=== PATIENT | male | born 1940 | race Caucasian/White ===

== ENCOUNTER 2022-05-06 11:48 | Inpatient (IN) | payer MEDICARE, MEDICAID, SELFPAY ==
[2022-05-06] VITALS (20 sets, daily range): BP systolic 100–131; BP diastolic 56–68; PULSE 83–156; RESP 16–37; TEMP 36.6–36.8; O2SAT 90–97; BMI 32.1; BMI 33.0
--- NOTE | 2022-05-06 11:53 | DI.RAD.S_ITS ---
PROCEDURE: XR CHEST 2V INDICATIONS: shortness of breath TECHNIQUE: 2 views of the chest were acquired. COMPARISON: [facility], CHEST 2 VIEW, 07/04/2013, 15:47. [facility], CHEST 2 VIEW, 05/15/2013, 15:23. FINDINGS: Surgical changes and devices: None. Lungs and pleura: [id number] bilateral mid and lower lung disease. Mediastinum: Borderline enlarged heart. Tortuous aorta. Stable prominent mediastinum. Bones and chest wall: No suspicious bony abnormalities. Soft tissues appear unremarkable. IMPRESSION: Bilateral [id number] lung disease could be infection or inflammation. Consider future imaging surveillance to assess for resolution. Dictated by: Brant Tiwari M.D. on 05/06/2022 at 13:02 Approved by: Brant Tiwari M.D. on 05/06/2022 at 13:04
--- NOTE | 2022-05-06 12:48 | ED.SOB ---
HPI - SOB/Dyspnea General Chief Complaint: Shortness of Breath/Dyspnea Stated Complaint: sob Time Seen by Provider: 05/06/22 11:56 Source: patient and family Mode of arrival: EMS Limitations: no limitations History of Present Illness HPI Narrative: Patient is a a 81-year-old male history of COPD, CHF atrial fibrillation presenting today with increasing shortness of breath. The last 2 days he has not felt while he has had productive sputum he has been short of breath at rest he had some vomiting and some diarrhea as well but no abdominal pain. Generally not feeling great. He has been unable to take most of his medication last 2 days due to nausea and diarrhea. EMS arrived and found him hypoxic 86% on room air in slightly hypotensive in the 90s. Blood pressure his now stable after small amount of fluid. He received to bronchodilators by EMS as well. He is not on home oxygen. Related Data Home Medications Medication Instructions Recorded Confirmed albuterol sulfate 90 mcg/actuation 2 puff inhalation Q6H PRN 05/06/22 05/06/22 aerosol inhaler (Ventolin HFA) Shortness Of Breath apixaban 5 mg tablet (Eliquis) 5 mg PO BID 05/06/22 05/06/22 budesonide-formoterol HFA 160 2 puff inhalation Q12H 05/06/22 05/06/22 mcg-4.5 mcg/actuation aerosol inhaler (Symbicort) potassium chloride 10 mEq 20 meq PO DAILY PRN low potassium 05/06/22 05/06/22 tablet,extended release torsemide 20 mg tablet 40 mg PO DAILY 05/06/22 05/06/22 Previous Rx's Medication Instructions Recorded carvedilol 6.25 mg tablet (Coreg) 6.25 mg PO BID #180 tabs 12/21/16 Allergies Allergy/AdvReac Type Severity Reaction Status Date / Time codeine [CODEINE] AdvReac Unknown HEADACHE Verified 05/06/22 11:54 hydrocodone [HYDROCODONE] AdvReac Unknown HEADACHE Verified 05/06/22 11:54 Review of Systems Review of Systems Narrative: GENERAL: Body aches generalized weakness, see HPI HEENT: Denies sinus pain, ear pain, sore throat, difficulty swallowing, neck pain RESPIRATORY: See HPI CARDIOVASCULAR: Denies chest pain, palpitations, orthopnea, edema GASTROINTESTINAL: Denies nausea, vomiting, abdominal pain, diarrhea, constipation, melena. : Denies dysuria, frequency, incontinence, hematuria, urinary retention, flank pain. MUSCULOSKELETAL: Denies weakness, joint pain, or bony pain SKIN: No rash, no erythema, no pruritus NEUROLOGIC: Denies weakness, dizziness, headache, numbness, change in speech, confusion PSYCHIATRIC: No concerning psychosocial issues. 12 point review of systems is negative except for those stated above and HPI Patient History Medical History CHF (congestive heart failure) Chronic atrial fibrillation (07/13/15) Chronic obstructive pulmonary disease (07/13/15) Essential hypertension (07/13/15) Surgical History S/P hernia surgery S/P TURP Family History Mother No pertinent past medical history Father No pertinent past medical history Social History household members: spouse Smoking Status: Former smoker alcohol intake: never Smoking Status: Never smoker Substance Use Type: does not use Exam Initial Vital Signs Initial Vital Signs: Vital Signs Pulse Rate 104 H 05/06/22 11:53 Blood Pressure 130/66 05/06/22 11:53 Pulse Oximetry 91 05/06/22 11:53 GENERAL: Alert ill-appearing 81-year-old male HEENT: Head atraumatic,EOMI, pupils reactive, face symmetric,dry mucous membranes CARDIOVASCULAR: Regular rate and rhythm without murmurs, rubs or gallops. RESPIRATORY: Rales at base his minimal tachypnea minimal wheezing ABDOMEN: Soft, nontender. Normoactive bowel sounds all 4 quadrants. No guarding or rebound. EXTREMITIES: Normal range of motion, no clubbing . +1 edema. Neurovascularly intact NEUROLOGICAL: Alert and oriented x4. Moving all extremities SKIN: Warm, dry, no laceration, no petechiae, no rashes or lesions. Course Orders Ordered: ED Orders 05/06/22 11:53 XR chest 2V Stat EKG-12 Lead Stat Measure peak expiratory flow ONCE RT Consult Eval and Treat Now 05/06/22 12:20 Covid-19 + FLU A/B + RSV - PCR Stat 05/06/22 13:12 BNP [NT-proBNP (BNP-Adult 18+)] Stat Complete Blood Count AUTO DIFF Stat Comprehensive Metabolic Panel Stat Procalcitonin Stat Troponin & CK Cardiac Panel Stat 05/06/22 13:18 Blood Culture Stat Lactate (Lactic Acid) Stat 05/06/22 13:53 UA Complete [Urinalysis and Microscopic] Stat 05/07/22 05:00 Complete Blood Count AUTO DIFF DAILY Comprehensive Metabolic Panel DAILY Magnesium DAILY 05/08/22 05:00 Complete Blood Count AUTO DIFF DAILY Comprehensive Metabolic Panel DAILY Magnesium DAILY 05/09/22 05:00 Complete Blood Count AUTO DIFF DAILY Comprehensive Metabolic Panel DAILY Magnesium DAILY Acetaminophen (Acetaminophen 325 Mg Tablet) 650 mg PO Q6H PRN PRN Reason: Fever/Mild Pain (1-3) Last Admin: 05/06/22 17:29 Dose: 650 mg Documented By: MARINO Albuterol (Albuterol 2.5 Mg/3 Ml Neb (Adult)) 2.5 mg INH [id number] PRN PRN Reason: Shortness Of Breath Albuterol/Ipratropium (Albuterol/Ipratropium 3 Ml Ampul) 3 ml INH [id number] ANA Apixaban (Apixaban 5 Mg Tablet) 5 mg PO BID ANA Benzocaine (Benzocaine/Menthol 1 Milind Pkt) 1 each PO Q1HR PRN PRN Reason: Sore Throat Last Admin: 05/06/22 16:19 Dose: 1 each Documented By: MARINO Budesonide (Budesonide 0.5 Mg/2 Ml Neb) 0.5 mg INH RTBID ANA Ceftriaxone Sodium 1,000 mg/ (Sodium Chloride) 100 mls @ 200 mls/hr IV Q24H ANA Stop: 05/10/22 14:31 Azithromycin 500 mg/ Dextrose 250 mls @ 250 mls/hr IV Q24H ANA Stop: 05/08/22 14:31 Ondansetron HCl (Ondansetron 4 Mg/2 Ml Inj) 4 mg IV Q8HR PRN PRN Reason: Nausea And Vomiting Prednisone (Prednisone 20 Mg Tablet) 40 mg PO DAILY AAN Discontinued Medications Ceftriaxone Sodium 2,000 mg/ (Sodium Chloride) 100 mls @ 200 mls/hr IV NOW ONE Stop: 05/06/22 13:50 Last Infusion: 05/06/22 14:34 Dose: 0 mls/hr Documented By: Admin: 05/06/22 14:02 Dose: 200 mls/hr Documented By: GABBY Azithromycin 500 mg/ Dextrose 250 mls @ 250 mls/hr IV NOW ONE Stop: 05/06/22 13:50 Last Infusion: 05/06/22 16:33 Dose: 250 mls/hr Documented By: Admin: 05/06/22 14:38 Dose: 250 mls/hr Documented By: GABBY Sodium Chloride (Normal Saline 0.9%) 1,000 mls @ 1,000 mls/hr IV BOLUS ONE Stop: 05/06/22 15:15 Last Infusion: 05/06/22 16:33 Dose: 1,000 mls/hr Documented By: Admin: 05/06/22 14:25 Dose: 1,000 mls/hr Documented By: GABBY Vital Signs Vital signs: Vital Signs - 8 hr 05/06/22 11:56 05/06/22 11:53 05/06/22 11:53 Temperature 97.9 F Pulse Rate 96 H 104 H Respiratory Rate 26 H Blood Pressure 130/66 130/66 Pulse Oximetry 91 91 Oxygen Delivery Method Room Air Oxygen Flow Rate 05/06/22 12:00 05/06/22 12:15 05/06/22 12:37 Temperature Pulse Rate 99 H 98 H 156 H Respiratory Rate 37 H 29 H Blood Pressure Pulse Oximetry 94 94 Oxygen Delivery Method Nasal Cannula Oxygen Flow Rate 2 05/06/22 12:45 05/06/22 13:00 05/06/22 13:15 Temperature Pulse Rate 95 H 97 H 99 H Respiratory Rate 21 21 Blood Pressure Pulse Oximetry 96 97 96 Oxygen Delivery Method Oxygen Flow Rate 05/06/22 13:30 05/06/22 13:45 05/06/22 13:47 Temperature Pulse Rate 95 H 129 H 110 H Respiratory Rate Blood Pressure Pulse Oximetry 93 93 90 L Oxygen Delivery Method Nasal Cannula Oxygen Flow Rate 2 05/06/22 13:47 05/06/22 13:57 05/06/22 13:57 Temperature Pulse Rate 99 H Respiratory Rate Blood Pressure 131/68 109/59 L Pulse Oximetry 91 Oxygen Delivery Method Oxygen Flow Rate 05/06/22 14:00 05/06/22 14:00 05/06/22 14:15 Temperature Pulse Rate 93 H Respiratory Rate Blood Pressure 100/59 L 104/61 Pulse Oximetry 91 Oxygen Delivery Method Oxygen Flow Rate 05/06/22 14:15 Temperature Pulse Rate 89 Respiratory Rate 26 H Blood Pressure Pulse Oximetry 92 Oxygen Delivery Method Nasal Cannula Oxygen Flow Rate 2 MDM - SOB/Dyspnea Lab Data Result diagrams: 05/06/22 13:12 05/06/22 13:12 Labs: Lab Results 05/06/22 05/06/22 05/06/22 Range/Units 12:20 13:12 13:12 WBC 13.4 H (4.5-11.0) X10^3/uL RBC 5.13 (4.5-5.9) X10^6/uL Hgb 13.8 (13.5-17.5) g/dL Hct 42.7 (41-53) % MCV 83.3 (80-100) fL MCH 26.8 (26-34) PG MCHC 32.2 (30-36) % RDW 14.3 (11.6-14.8) % Plt Count 194 (150-400) X10^3/uL Neut % (Auto) 82.0 H (50-75) % Lymph % (Auto) 5.6 L (25-40) % [place] % (Auto) 12.1 (3-14) % Eos % (Auto) 0.0 L (2-4) % Baso % (Auto) 0.3 (0-2) % Neut # (Auto) 92809 H (6715-9206) /uL Lymph # (Auto) 700 L (1720-0313) /uL [place] # (Auto) 1600 H (0-900) /uL Eos # (Auto) 0 (0-450) /uL Baso # (Auto) 0 (0-100) /uL Sodium 135 L (137-145) mmol/L Potassium 4.3 (3.4-5.1) mmol/L Chloride 98 (98-107) mmol/L Carbon Dioxide 26 (22-32) mmol/L BUN 28 H (9-20) mg/dL Creatinine 1.04 (0.66-1.25) mg/dL Estimated GFR > 60 (>60) mL/min BUN/Creatinine Ratio 26.9 H (6-22) Glucose 131 H (80-110) mg/dL Lactate (0.7-2.1) mmol/L Calcium 8.2 L (8.4-10.2) mg/dL Total Bilirubin 1.7 H (0.2-1.3) mg/dL AST 28 (17-59) IU/L ALT 24 (<50) IU/L Alkaline Phosphatase 82 (38-126) U/L Total Creatine Kinase (55-170) U/L CK-MB (CK-2) CK-MB (CK-2) Rel Index Troponin I (0.01-0.034) ng/mL NT-Pro-B Natriuret Pep (<450) pg/mL Total Protein 6.9 (6.3-8.2) g/dL Albumin 3.7 (3.5-5.0) g/dL Globulin 3.2 (1.7-4.1) g/dL Albumin/Globulin Ratio 1.2 (1.0-2.8) Procalcitonin (<0.5) ng/mL SARS-CoV-2 (PCR) Negative (Negative) Influenza A (RT-PCR) Flu a negative (NEGATIVE) Influenza B (RT-PCR) Flu b negative (NEGATIVE) RSV (PCR) Negative (Negative) 05/06/22 05/06/22 05/06/22 Range/Units 13:12 13:12 13:18 WBC (4.5-11.0) X10^3/uL RBC (4.5-5.9) X10^6/uL Hgb (13.5-17.5) g/dL Hct (41-53) % MCV (80-100) fL MCH (26-34) PG MCHC (30-36) % RDW (11.6-14.8) % Plt Count (150-400) X10^3/uL Neut % (Auto) (50-75) % Lymph % (Auto) (25-40) % [place] % (Auto) (3-14) % Eos % (Auto) (2-4) % Baso % (Auto) (0-2) % Neut # (Auto) (2324-0836) /uL Lymph # (Auto) (5282-7810) /uL [place] # (Auto) (0-900) /uL Eos # (Auto) (0-450) /uL Baso # (Auto) (0-100) /uL Sodium (137-145) mmol/L Potassium (3.4-5.1) mmol/L Chloride (98-107) mmol/L Carbon Dioxide (22-32) mmol/L BUN (9-20) mg/dL Creatinine (0.66-1.25) mg/dL Estimated GFR (>60) mL/min BUN/Creatinine Ratio (6-22) Glucose (80-110) mg/dL Lactate 1.6 (0.7-2.1) mmol/L Calcium (8.4-10.2) mg/dL Total Bilirubin (0.2-1.3) mg/dL AST (17-59) IU/L ALT (<50) IU/L Alkaline Phosphatase (38-126) U/L Total Creatine Kinase 71 (55-170) U/L CK-MB (CK-2) TNP CK-MB (CK-2) Rel Index TNP Troponin I 0.073 H (0.01-0.034) ng/mL NT-Pro-B Natriuret Pep 2840 H (<450) pg/mL Total Protein (6.3-8.2) g/dL Albumin (3.5-5.0) g/dL Globulin (1.7-4.1) g/dL Albumin/Globulin Ratio (1.0-2.8) Procalcitonin 2.11 H (<0.5) ng/mL SARS-CoV-2 (PCR) (Negative) Influenza A (RT-PCR) (NEGATIVE) Influenza B (RT-PCR) (NEGATIVE) RSV (PCR) (Negative) Imaging Data Chest x-ray: Radiologist's Impression: Signed Patient: Shahid Nam MR#: [id number] : 1940 Acct:[id number] Age/Sex: 81 / M Date of Service: 05/06/22 Loc: ED Accession Number: [id number] ?? Procedure: XR chest 2V Ordering Provider: Shelby Beebe D.O. PROCEDURE:? XR CHEST 2V ? INDICATIONS:? shortness of breath ? TECHNIQUE:? 2 views of the chest were acquired.? ? COMPARISON:? [facility], , CHEST 2 VIEW, 07/04/2013, 15:47.? [facility] , CHEST 2 VIEW, 05/15/2013, 15:23. ? FINDINGS:? ? Surgical changes and devices:? None.? ? Lungs and pleura:? Wfcr-ll-[id number] bilateral mid and lower lung disease. ? Mediastinum:? Borderline enlarged heart.? Tortuous aorta.? Stable prominent mediastinum. ? Bones and chest wall:? No suspicious bony abnormalities.? Soft tissues appear unremarkable.? ? IMPRESSION:? Bilateral lhuk-[id number]-vbekysfb lung disease could be infection or inflammation.? Consider future imaging surveillance to assess for resolution. ? ? ? Dictated by: Brant Tiwari M.D. on 05/06/2022 at 13:02 ? ? ECG Data Interpretation: Atrial fibrillation rate [address] changes no T-wave inversions similar to previous EKG similar previous EKG MDM Narrative Medical decision making narrative: Patient presents with generalized weakness productive cough diagnosed with pneumonia on x-ray. He has a leukocytosis of 13 with left shift along with a procalcitonin of 2.1. He has a normal lactic acid his blood pressure is soft with a systolic in the 100s. He is probably dehydrated with decreased oral intake. His BNP is 2800 unknown what his baseline is. He is tolerating IV fluids, but is not given the sepsis bolus he has cautiously given IV fluids. He is requiring 1-2 L of oxygen which he normally does not. Do not necessarily think this is exacerbation of CHF with history of fever productive cough and nausea vomiting. He was given DuoNeb is by EMS for COPD exacerbation. He really isn't having wheezing or tachypnea here. He is treated for community-acquired pneumonia with Rocephin and azithromycin. He has not had any recent hospitalizations. Patient's troponin is indeterminate at 0.073 without EKG changes and chronic AFib. This is probably demand ischemia. I did discuss with him about intubation and CPR at this time he does want to be a full code. Dr. Gonzalez updated patient's symptoms and test results, accepts patient for inpatient Discharge Plan Departure Patient Disposition: Admitted As Inpatient Clinical Impression: Pneumonia, Chronic atrial fibrillation, Chronic obstructive pulmonary disease Admit Date/Time: 05/06/22 14:21 Admit Provider: Elvis Gonzalez
[2022-05-06 13:38] LABS: Add Manual Diff / Slide Review NO; Basophils Absolute Auto 0 /uL (0-100); Basophils Percent Auto 0.3 % (0-2); Eosinophils Absolute Auto 0 /uL (0-450); Hematocrit 42.7 % (41-53); Hemoglobin 13.8 g/dL (13.5-17.5); Lymphocytes Absolute Auto 700 /uL (1100-4500); Lymphocytes Percent Auto 5.6 % (25-40); Mean Corpuscular HGB Conc 32.2 % (30-36); Mean Corpuscular Hemoglobin 26.8 PG (26-34); Mean Corpuscular Volume 83.3 fL (80-100); Monocytes Absolute Auto 1600 /uL (0-900); Monocytes Percent Auto 12.1 % (3-14); Neutrophils Absolute Auto 11000 /uL (1500-7000); Platelet Count 194 X10^3/uL (150-400); Red Blood Cell Count 5.13 X10^6/uL (4.5-5.9); Red Cell Distribution Width 14.3 % (11.6-14.8); White Blood Cell Count 13.4 X10^3/uL (4.5-11.0)
[2022-05-06 13:40] LABS: Creatine Kinase 71 U/L (55-170)
[2022-05-06 13:42] LABS: Alanine Aminotransferase 24 IU/L (<50); Albumin 3.7 g/dL (3.5-5.0); Albumin Globulin Ratio 1.2 (1.0-2.8); Alkaline Phosphatase 82 U/L (38-126); Aspartate Aminotransferase 28 IU/L (17-59); BUN Creatinine Ratio 26.9 (6-22); Bilirubin Total 1.7 mg/dL (0.2-1.3); Blood Urea Nitrogen 28 mg/dL (9-20); Calcium 8.2 mg/dL (8.4-10.2); Carbon Dioxide 26 mmol/L (22-32); Chloride 98 mmol/L (98-107); Estimated Glomerular Filt Rate > 60 mL/min (>60); Globulin 3.2 g/dL (1.7-4.1); Glucose 131 mg/dL (80-110); HEMOLYSIS 50 (0-50); Potassium 4.3 mmol/L (3.4-5.1); Sodium 135 mmol/L (137-145); Total Protein 6.9 g/dL (6.3-8.2)
[2022-05-06 13:47] LABS: Influenza A - CEPHEID Flu A NEGATIVE (NEGATIVE); Influenza B - CEPHEID Flu B NEGATIVE (NEGATIVE); Respiratory Syncytial Virus Negative (Negative)
[2022-05-06 13:50] LABS: NT-proBNP (BNP-Adult 18+) 2840 pg/mL (<450)
[2022-05-06 13:51] LABS: Lactate (Lactic Acid) 1.6 mmol/L (0.7-2.1)
[2022-05-06 13:57] LABS: Procalcitonin 2.11 ng/mL (<0.5)
[2022-05-06] MEDS: cefTRIAXone 2,000 MG in SODIUM CHLORIDE 0.9% 100 ML 200 MG IV (14:02)
[2022-05-06 14:03] LABS: COVID-19 CEPHEID 4-PLEX PCR Negative (Negative)
[2022-05-06 14:23] LABS: Troponin I 0.073 ng/mL (0.01-0.034)
[2022-05-06] MEDS: SODIUM CHLORIDE 0.9% 1,000 ML 1000 ML IV (14:25)
[2022-05-06] MEDS: AZITHROMYCIN 500 MG in DEXTROSE 5% IN WATER 250 ML 250 MG IV (14:38)
--- NOTE | 2022-05-06 16:08 | PM.HP.1 ---
History of Present Illness History of Present Illness Date Patient Seen: 05/06/22 Time Patient Seen: 16:08 Chief complaint: sob Narrative: This is an 81 year old male with PMH of chronic atrial fibrillation, COPD, CHF (unknown EF) who presents with shortness of breath, productive cough, sore throat and diarrhea for the past 3 days. Symptoms have gradually increased over the past 3 days, and last night he had a very difficult time breathing so he decided to come to the hospital today. His cough is productive of brownish yellow sputum, and he does feel somewhat wheezy. He denies any chest pain or palpitations. He denies any abdominal pain or dysuria. He has not had any recent travel or sick contacts. He has not had any lower extremity swelling. He has had difficulty swallowing and eating over the past few days with his sore throat but denies any coughing after meals. He has not taken his home furosemide the last two days because he has felt too weak to get up to use the restroom. In the emergency room, he was in afib with RVR in the low 120s. BP was on the soft side and per EMS his oxygen was in the low 80s on room air, responsive to 2L O2 here. CXR showed bilateral consolidations, R > L. Laboratory evaluation showed mild leukocytosis with WBC 13.4, Elevated T bili at 1.7 with normal AST/ALT, troponin 0.073, proBNP 2840, and procalcitonin of 2.11. COVID,FLU,and RSV were negative. He was given sepsis antibiotics with cefitraxone and azithromycin, fluid bolus was given (not full sepsis bolus was given over concern for possible acute heart failure). He was admitted for further management of presumed bacterial pneumonia and COPD exacerbation. Patient History Medical History CHF (congestive heart failure) Chronic atrial fibrillation (07/13/15) Chronic obstructive pulmonary disease (07/13/15) Essential hypertension (07/13/15) Surgical History S/P hernia surgery S/P TURP Family & Social History Family History Mother No pertinent past medical history Father No pertinent past medical history Social History: household members spouse Prior Living Arrangements House Safety & Behavioral: Feels Safe in Current Yes Environment Been Physically Hurt or No Threatened By a Person Tobacco & Substance use: Tobacco type cigarettes Smoking Status Former smoker alcohol intake never Substance Use Type does not use Meds Home Medications and Allergies Home Medications Medication Instructions Recorded Confirmed Type carvedilol 6.25 mg tablet (Coreg) 6.25 mg PO BID #180 tabs 12/21/16 05/06/22 Rx albuterol sulfate 90 mcg/actuation 2 puff inhalation Q6H PRN 05/06/22 05/06/22 History aerosol inhaler (Ventolin HFA) Shortness Of Breath apixaban 5 mg tablet (Eliquis) 5 mg PO BID 05/06/22 05/06/22 History budesonide-formoterol HFA 160 2 puff inhalation Q12H 05/06/22 05/06/22 History mcg-4.5 mcg/actuation aerosol inhaler (Symbicort) potassium chloride 10 mEq 20 meq PO DAILY PRN low potassium 05/06/22 05/06/22 History tablet,extended release torsemide 20 mg tablet 40 mg PO DAILY 05/06/22 05/06/22 History Allergies Allergy/AdvReac Type Severity Reaction Status Date / Time codeine [CODEINE] AdvReac Unknown HEADACHE Verified 05/06/22 11:54 hydrocodone [HYDROCODONE] AdvReac Unknown HEADACHE Verified 05/06/22 11:54 Review of Systems Review of Systems Narrative: All other systems reviewed with the patient and are negative unless otherwise stated. Exam Vital Signs (past 8 hours): - 05/06/22 11:56 05/06/22 11:53 05/06/22 11:53 Temperature 97.9 F Pulse Rate 96 H 104 H Respiratory Rate 26 H Blood Pressure 130/66 130/66 Pulse Oximetry 91 91 Oxygen Delivery Method Room Air Oxygen Flow Rate 05/06/22 12:00 05/06/22 12:15 05/06/22 12:37 Temperature Pulse Rate 99 H 98 H 156 H Respiratory Rate 37 H 29 H Blood Pressure Pulse Oximetry 94 94 Oxygen Delivery Method Nasal Cannula Oxygen Flow Rate 2 05/06/22 12:45 05/06/22 13:00 05/06/22 13:15 Temperature Pulse Rate 95 H 97 H 99 H Respiratory Rate 21 21 Blood Pressure Pulse Oximetry 96 97 96 Oxygen Delivery Method Oxygen Flow Rate 05/06/22 13:30 05/06/22 13:45 05/06/22 13:47 Temperature Pulse Rate 95 H 129 H 110 H Respiratory Rate Blood Pressure Pulse Oximetry 93 93 90 L Oxygen Delivery Method Nasal Cannula Oxygen Flow Rate 2 05/06/22 13:47 05/06/22 13:57 05/06/22 13:57 Temperature Pulse Rate 99 H Respiratory Rate Blood Pressure 131/68 109/59 L Pulse Oximetry 91 Oxygen Delivery Method Oxygen Flow Rate 05/06/22 14:00 05/06/22 14:00 05/06/22 14:15 Temperature Pulse Rate 93 H Respiratory Rate Blood Pressure 100/59 L 104/61 Pulse Oximetry 91 Oxygen Delivery Method Oxygen Flow Rate 05/06/22 14:15 05/06/22 14:30 05/06/22 14:30 Temperature Pulse Rate 89 95 H Respiratory Rate 26 H Blood Pressure 106/59 L Pulse Oximetry 92 93 Oxygen Delivery Method Nasal Cannula Oxygen Flow Rate 2 05/06/22 14:45 05/06/22 14:45 05/06/22 15:47 Temperature Pulse Rate 94 H Respiratory Rate 24 Blood Pressure 115/61 Pulse Oximetry 95 Oxygen Delivery Method Nasal Cannula Nasal Cannula Oxygen Flow Rate 2 05/06/22 15:47 Temperature 98.3 F Pulse Rate 97 H Respiratory Rate 20 Blood Pressure 108/68 Pulse Oximetry 95 Oxygen Delivery Method Oxygen Flow Rate 2 Oxygen Delivery Method Nasal Cannula Oxygen Flow Rate 2 Narrative Exam Narrative: General:? Fatigued and moderately acutely ill appearing elderly male, in no acute distress. HEENT:? Normocephalic, atraumatic, extraocular muscles intact, oral pharynx is clear and mucous membranes are moist. Mild posterior pharyngeal erythema, tonsils without exudates. Neck: bilateral non-tender cervical lymphadenopathy. Thyromegaly without discrete nodule. Chest:? Normal AP diameter and contour without kyphoscoliosis, no tachypnea, equal chest rise bilaterally. Lungs:?bibasilar rhonchi, mild expiratory wheezing bilaterally. Cardio:?irregularly irregular rhythm with a normal rate. Abdomen: S NT ND. Musculoskeletal:? Muscle strength and tone are equal within normal limits, no deformity. Extremities: No edema or joint effusions. No cyanosis or clubbing. Skin:? Pale,? Warm to touch,dry and intact without rashes, ulcerations or petechiae.? Neuro:? Alert and orientated x3,? sensation to touch intact in all extremities, no gross deficits noted of cranial nerves. Psych:? Patient has a well-kept appearance, appropriate affect, mental status attitude thought context and judgment are appropriate for age. Objective ECG Impression: atrial fibrillation with normal rate. No changes to previous tracings, no acute ischemia. As interpreted by me. Imaging Chest x-ray: My impression: bilateral consolidations, with R > L. Labs Result Diagrams: 05/06/22 13:12 05/06/22 13:12 Labs: Laboratory Results - last 24 hr 05/06/22 05/06/22 05/06/22 12:20 13:12 13:12 WBC 13.4 H RBC 5.13 Hgb 13.8 Hct 42.7 MCV 83.3 MCH 26.8 MCHC 32.2 RDW 14.3 Plt Count 194 Neut % (Auto) 82.0 H Lymph % (Auto) 5.6 L Posey % (Auto) 12.1 Eos % (Auto) 0.0 L Baso % (Auto) 0.3 Neut # (Auto) 78973 H Lymph # (Auto) 700 L Posey # (Auto) 1600 H Eos # (Auto) 0 Baso # (Auto) 0 Sodium 135 L Potassium 4.3 Chloride 98 Carbon Dioxide 26 BUN 28 H Creatinine 1.04 Estimated GFR > 60 BUN/Creatinine Ratio 26.9 H Glucose 131 H Lactate Calcium 8.2 L Total Bilirubin 1.7 H AST 28 ALT 24 Alkaline Phosphatase 82 Total Creatine Kinase CK-MB (CK-2) CK-MB (CK-2) Rel Index Troponin I NT-Pro-B Natriuret Pep Total Protein 6.9 Albumin 3.7 Globulin 3.2 Albumin/Globulin Ratio 1.2 Procalcitonin SARS-CoV-2 (PCR) Negative Influenza A (RT-PCR) Flu a negative Influenza B (RT-PCR) Flu b negative RSV (PCR) Negative 05/06/22 05/06/22 05/06/22 13:12 13:12 13:18 WBC RBC Hgb Hct MCV MCH MCHC RDW Plt Count Neut % (Auto) Lymph % (Auto) Posey % (Auto) Eos % (Auto) Baso % (Auto) Neut # (Auto) Lymph # (Auto) Posey # (Auto) Eos # (Auto) Baso # (Auto) Sodium Potassium Chloride Carbon Dioxide BUN Creatinine Estimated GFR BUN/Creatinine Ratio Glucose Lactate 1.6 Calcium Total Bilirubin AST ALT Alkaline Phosphatase Total Creatine Kinase 71 CK-MB (CK-2) TNP CK-MB (CK-2) Rel Index TNP Troponin I 0.073 H NT-Pro-B Natriuret Pep 2840 H Total Protein Albumin Globulin Albumin/Globulin Ratio Procalcitonin 2.11 H SARS-CoV-2 (PCR) Influenza A (RT-PCR) Influenza B (RT-PCR) RSV (PCR) Assessment & Plan Assessment & Plan narrative: This is an 81 year old male with PMH of chronic atrial fibrillation, COPD, CHF (unknown EF) who presents with shortness of breath admitted for further management of presumed bacterial pneumonia and COPD exacerbation. 1. Acute respiratory failure with hypoxia, present on admission - likely secondary to acute infection with COPD exacerbation as discussed below. - continue to wean from O2, goal O2 should be 88-92% while on supplemental oxygen given COPD history. 2. Sepsis secondary to bilateral Bacterial community acquired pneumonia , acute, present on admission with acute respiratory failure with hypoxia, elevated troponin, and Hyperbilirubinemia. - PSI class IV risk, high risk of morbidity and mortality. - continue ceftriaxone and azithromycin - patient did meet SIRS criteria, SOFA score of 2 currently. - did not give sepsis fluid bolus over concern for patient's underlying heart failure at this time and the possibility this could worsen his respiratory status. 3. COPD with exacerbation - start prednisone 40 mg daily x5 days - RT eval and treat. Continue formulary nebulizer equivalents to his home medications during admission along with albuterol prn. 4. Chronic heart failure, type unknown - TTE ordered - hold home furosemide at this time, suspect more dehydrated currently. If hypotensive fluid bolus to be given cautiously. 5. chronic atrial fibrillation with RVR - will hold home beta saji for now until BP improves. suspect RVR in setting of active infection. Code: Full, surrogate decision maker is his . DVT: on apixaban for afib Dispo: patient admitted as an inpatient given high risk of morbidity and mortality from his acute infection in the setting of his underlying chronic medical conditions and expected stay beyond 2 midnights. I have utilized all available immediate resources to obtain, update, or review the patient's current medications. COVID-19 COVID-19 status: Negative Result date/Date tested (Pos, Neg/Pending): 05/06/22 Time Spent With Patient Critical Care time: I spent a total of [] minutes of critical care time on this patient's care today; this time is exclusive of procedural time. Scores SOFA PaO2/FIO2: < 400 mmHg Platelets: >= 150 Bilirubin: 1.2-1.9 mg/dL Hypotension: MAP >= 70 mmHg [place] Coma Scale: 15 Renal: < 1.2 mg/dL SOFA Score: 2 Quality VTE Deep Vein Thrombosis/Pulmonary Embolism Present on Admission: No MIPS - Admit I confirm the patient?s Advance Care Plan is present, Code status is documented, Surrogate decision maker is in patient?s record [If Yes, STOP here]: Yes
--- NOTE | 2022-05-06 16:09 | DI.ECHO.S_ITS ---
[place] +---------+ Hospital +---------+ : : [address] : : : : [id number] : : : : Phone: [phone]+ Echocardiogram Report + + :Name: WILDA SAWYER Study Date: 05/06/2022 Height: 74 in : :[facility] ReadingLocation: Weight: 256 lb : : Gender: Male BSA: 2.4 m2 : :: 1940 Age: 81 yrs BP: 108/68 mmHg: :Reason For Study: Atrial fibrillation : :Ordering Physician: KELSEY, : :ADWOA EMERY Performed By: Fahad Webber : :Referring: ADWOA COLE : + + Interpretation Summary The left ventricle is normal in size and wall thickness. Left ventricular systolic function is normal. The ejection fraction is estimated to be 60-65%. There are no focal wall motion abnormalities. Diastolic function could not be accurately assessed due to atrial fibrillation. The right ventricle is mildly dilated. The right ventricular systolic function is normal. The right ventricular systolic pressure is estimated to be at least 51 mmHg based on an estimated right atrial pressure of 8 mm Hg. Both atria are severely dilated. There is mild to moderate tricuspid regurgitation. There is no other significant valvular heart disease. The aortic root is normal size. Procedure: A two-dimensional transthoracic echocardiogram with color flow and Doppler was performed. The study quality was technically difficult. There is no prior echocardiogram noted for this patient. The patient was in atrial fibrillation with rapid ventricular response during the exam with a heart rate exceeding 100 bpm. Left Ventricle: The left ventricle is normal in size and wall thickness. Left ventricular systolic function is normal. The ejection fraction is estimated to be 60-65%. There are no focal wall motion abnormalities. Diastolic function could not be accurately assessed due to atrial fibrillation. Right Ventricle: The right ventricle is mildly dilated. The right ventricular systolic function is normal. Atria: Both atria are severely dilated. The interatrial septum grossly appears intact with no obvious evidence for an atrial septal defect. Mitral Valve: The mitral valve is grossly normal. There is trace mitral regurgitation. Aortic Valve: The aortic valve is normal in structure and function. No aortic regurgitation is present. Tricuspid Valve: The tricuspid valve is normal in structure but is abnormal in function. There is mild to moderate tricuspid regurgitation. The right ventricular systolic pressure is estimated to be at least 51 mmHg based on an estimated right atrial pressure of 8 mm Hg. Pulmonic Valve: The pulmonic valve is not well seen, but is grossly normal. There is no pulmonic valvular regurgitation. There is no other significant valvular heart disease. Great Vessels: The aortic root is normal size. The ascending aorta could not be visualized. The IVC is dilated (diameter is greater than 2.1 cm) yet it collapses greater than 50% with a sniff. This suggests a right atrial pressure of 8 mm Hg. Pericardium/ Pleura There is no pericardial effusion. There is no pleural effusion. MMode/2D Measurements & Calculations LVIDd: 5.5 cm LVOT diam: 2.3 cm LVIDs: 3.5 cm Ao root diam: 3.5 cm FS: 36.4 % IVSd: 1.0 cm LVPWd: 1.1 cm LV reed. diameter/BSA (cm/m^2): 2.3 LV sys. diameter/BSA (cm/m^2): 1.4 LA dimension: 3.9 cm RA long axis: 7.5 cm LA A2 area: 37.2 cm2 RA area: 37.3 cm2 LA A4 area: 41.1 cm2 RA vol: 157.4 ml LA length (vol): 7.6 cm RA : 65.2 ml/m2 LA vol: 170.8 ml IVC diam: 2.4 cm LA vol index: 70.7 ml/m2 TAPSE_phl: 2.1 cm Doppler Measurements & Calculations Ao V2 max: 139.0 cm/sec LVOT Max Esteban: 114.0 cm/sec Ao V2 mean: 92.8 cm/sec LV V1 max P.2 mmHg Ao max P.0 mmHg LV V1 VTI: 17.7 cm Ao mean P.0 mmHg SYED(I,D): 3.7 cm2 Ao V2 VTI: 20.0 cm SYED(V,D): 3.4 cm2 sev ratio: 0.89 SYED indexed to BSA (cm^2/m^2): 1.5 TR max esteban: 326.0 cm/sec SV(LVOT): 73.5 ml TR max P.5 mmHg AV VR_phl: 0.82 SYED(JESSEI)/BSA_phl: 1.5 Reading Physician:05:25 PM
[2022-05-06] MEDS: BENZOCAINE/MENTHOL 1 LOZ PKT 1 EACH PO (16:19)
[2022-05-06] MEDS: ACETAMINOPHEN 325 MG TABLET 650 MG PO (17:29)
[2022-05-06 19:25] LABS: Troponin I 0.054 ng/mL (0.01-0.034)
[2022-05-06] MEDS: BUDESONIDE 0.5 MG/2 ML NEB INH (19:33)
[2022-05-06] MEDS: ALBUTEROL/IPRATROPIUM 3 ML AMPUL INH (19:33)
[2022-05-06] MEDS: APIXABAN 5 MG TABLET PO (20:19)
[2022-05-07] VITALS (11 sets, daily range): BP systolic 117–148; BP diastolic 58–74; PULSE 83–140; RESP 18–26; TEMP 36.3–37; O2SAT 93–98
[2022-05-07] MEDS: ALBUTEROL/IPRATROPIUM 3 ML AMPUL INH ×3 (07:43→19:19)
[2022-05-07] MEDS: BUDESONIDE 0.5 MG/2 ML NEB INH ×2 (07:43→19:19)
[2022-05-07 07:47] LABS: Add Manual Diff / Slide Review NO; Basophils Absolute Auto 0 /uL (0-100); Basophils Percent Auto 0.4 % (0-2); Eosinophils Absolute Auto 0 /uL (0-450); Eosinophils Percent Auto 0.2 % (2-4); Hematocrit 42.2 % (41-53); Hemoglobin 13.6 g/dL (13.5-17.5); Lymphocytes Absolute Auto 500 /uL (1100-4500); Lymphocytes Percent Auto 4.4 % (25-40); Mean Corpuscular HGB Conc 32.2 % (30-36); Monocytes Absolute Auto 1800 /uL (0-900); Monocytes Percent Auto 14.9 % (3-14); Neutrophils Absolute Auto 9800 /uL (1500-7000); Neutrophils Percent Auto 80.1 % (50-75); Platelet Count 226 X10^3/uL (150-400); Red Blood Cell Count 5.02 X10^6/uL (4.5-5.9); Red Cell Distribution Width 14.7 % (11.6-14.8); White Blood Cell Count 12.3 X10^3/uL (4.5-11.0)
[2022-05-07 08:00] LABS: Alanine Aminotransferase 25 IU/L (<50); Albumin 3.5 g/dL (3.5-5.0); Albumin Globulin Ratio 1.1 (1.0-2.8); Alkaline Phosphatase 97 U/L (38-126); Aspartate Aminotransferase 26 IU/L (17-59); Bilirubin Total 1.1 mg/dL (0.2-1.3); Blood Urea Nitrogen 24 mg/dL (9-20); Calcium 8.5 mg/dL (8.4-10.2); Carbon Dioxide 29 mmol/L (22-32); Chloride 99 mmol/L (98-107); Estimated Glomerular Filt Rate > 60 mL/min (>60); Globulin 3.2 g/dL (1.7-4.1); Glucose 124 mg/dL (80-110); HEMOLYSIS < 15 (0-50); Magnesium 2.4 mg/dL (1.6-2.3); Potassium 4.2 mmol/L (3.4-5.1); Sodium 138 mmol/L (137-145); Total Protein 6.7 g/dL (6.3-8.2)
[2022-05-07 08:16] LABS: Procalcitonin 1.72 ng/mL (<0.5)
[2022-05-07] MEDS: BENZOCAINE/MENTHOL 1 LOZ PKT 1 EACH PO ×2 (08:43→20:12)
[2022-05-07] MEDS: APIXABAN 5 MG TABLET PO ×2 (08:43→20:12)
[2022-05-07] MEDS: carvediloL 3.125 MG TABLET 6.25 MG PO ×2 (09:28→20:12)
[2022-05-07 09:42] LABS: Appearance Urine UA CLEAR; Bilirubin Urine UA NEGATIVE (NEGATIVE); Color Urine UA YELLOW; Glucose Urine UA NEGATIVE (Negative); Ketones Urine UA TRACE (NEGATIVE); Leukocyte Esterase Urine UA NEGATIVE (NEGATIVE); Nitrite Urine UA NEGATIVE (Negative); Occult Blood Urine UA TRACE-LYSED (Negative); Protein Urine UA TRACE (Negative); Urobilinogen Urine UA 0.2 E.U./dL (0.2)
[2022-05-07 09:50] LABS: Amorphous Sediment Urine 1+; Bacteria Urine Occasional (0-1); Culture Indicated Urine Specimen Cultured; RBC Urine 0-1/HPF (0-5/HPF); Squamous Epithelial Cell Urine 0-1 /HPF (0-5/HPF); WBC Urine 0-1/HPF (0-5/HPF)
[2022-05-07] MEDS: FUROSEMIDE 40 MG/4 ML VIAL IV (12:27)
--- NOTE | 2022-05-07 12:27 | P.PN_ITS ---
Subjective Subjective Date Patient Seen: 05/07/22 Interval history: [place] more short of breath today, oxygen needed to be increased to 4L. Still feels tired and ill. No chest pain, nausea, vomiting, abdominal pain. No dirrhea since admission. Exam Vital Signs (past 8 hours): - 05/07/22 07:44 05/07/22 07:50 05/07/22 09:28 Temperature 98.2 F Pulse Rate 130 H 124 H 140 H Respiratory Rate 18 26 H Blood Pressure 148/68 H 148/68 H Pulse Oximetry 94 94 Oxygen Delivery Method Nasal Cannula Oxygen Flow Rate 6 6 Fraction of Inspired Oxygen 44 05/07/22 12:02 05/07/22 11:20 Temperature 98.4 F Pulse Rate 98 H Respiratory Rate 24 Blood Pressure 127/58 L Pulse Oximetry 94 Oxygen Delivery Method Nasal Cannula Oxygen Flow Rate 4 Fraction of Inspired Oxygen Fraction of Inspired Oxygen 44 SaO2/FiO2 Ratio 213 Oxygen Delivery Method Nasal Cannula Oxygen Flow Rate 4 Narrative Exam Narrative: General:? Fatigued and moderately acutely ill appearing elderly male, in no acute distress. HEENT:? Normocephalic, atraumatic, extraocular muscles intact, oral pharynx is clear and mucous membranes are moist. Mild posterior pharyngeal erythema, tonsils without exudates. Neck: bilateral non-tender cervical lymphadenopathy. Thyromegaly without discrete nodule. Chest:? Normal AP diameter and contour without kyphoscoliosis, no tachypnea, equal chest rise bilaterally. Lungs:?bibasilar rhonchi, mild expiratory wheezing bilaterally. Cardio:?irregularly irregular rhythm, tachycardic no m/r/g. Abdomen: S NT ND. Musculoskeletal:? Muscle strength and tone are equal within normal limits, no deformity. Extremities: No edema or joint effusions. No cyanosis or clubbing. Skin:? Pale,? Warm to touch,dry and intact without rashes, ulcerations or petechiae.? Neuro:? Alert and orientated x3,? sensation to touch intact in all extremities, no gross deficits noted of cranial nerves. Psych:? Patient has a well-kept appearance, appropriate affect, mental status attitude thought context and judgment are appropriate for age. Objective Labs Result Diagrams: 05/07/22 07:34 05/07/22 07:34 Labs: Laboratory Results - last 24 hr 05/06/22 05/06/22 05/06/22 12:20 13:12 13:12 WBC 13.4 H RBC 5.13 Hgb 13.8 Hct 42.7 MCV 83.3 MCH 26.8 MCHC 32.2 RDW 14.3 Plt Count 194 Neut % (Auto) 82.0 H Lymph % (Auto) 5.6 L [place] % (Auto) 12.1 Eos % (Auto) 0.0 L Baso % (Auto) 0.3 Neut # (Auto) 20098 H Lymph # (Auto) 700 L [place] # (Auto) 1600 H Eos # (Auto) 0 Baso # (Auto) 0 Sodium 135 L Potassium 4.3 Chloride 98 Carbon Dioxide 26 BUN 28 H Creatinine 1.04 Estimated GFR > 60 BUN/Creatinine Ratio 26.9 H Glucose 131 H Lactate Calcium 8.2 L Magnesium Total Bilirubin 1.7 H AST 28 ALT 24 Alkaline Phosphatase 82 Total Creatine Kinase CK-MB (CK-2) CK-MB (CK-2) Rel Index Troponin I NT-Pro-B Natriuret Pep Total Protein 6.9 Albumin 3.7 Globulin 3.2 Albumin/Globulin Ratio 1.2 Procalcitonin Urine Color Urine Appearance Urine pH Ur Specific [place] Urine Protein Urine Glucose (UA) Urine Ketones Urine Occult Blood Urine Nitrate Urine Bilirubin Urine Urobilinogen Ur Leukocyte Esterase Urine RBC Urine WBC Ur Squamous Epith Cells Amorphous Sediment Urine Bacteria Ur Culture Indicated? SARS-CoV-2 (PCR) Negative Influenza A (RT-PCR) Flu a negative Influenza B (RT-PCR) Flu b negative RSV (PCR) Negative 05/06/22 05/06/22 05/06/22 13:12 13:12 13:18 WBC RBC Hgb Hct MCV MCH MCHC RDW Plt Count Neut % (Auto) Lymph % (Auto) [place] % (Auto) Eos % (Auto) Baso % (Auto) Neut # (Auto) Lymph # (Auto) [place] # (Auto) Eos # (Auto) Baso # (Auto) Sodium Potassium Chloride Carbon Dioxide BUN Creatinine Estimated GFR BUN/Creatinine Ratio Glucose Lactate 1.6 Calcium Magnesium Total Bilirubin AST ALT Alkaline Phosphatase Total Creatine Kinase 71 CK-MB (CK-2) TNP CK-MB (CK-2) Rel Index TNP Troponin I 0.073 H NT-Pro-B Natriuret Pep 2840 H Total Protein Albumin Globulin Albumin/Globulin Ratio Procalcitonin 2.11 H Urine Color Urine Appearance Urine pH Ur Specific [place] Urine Protein Urine Glucose (UA) Urine Ketones Urine Occult Blood Urine Nitrate Urine Bilirubin Urine Urobilinogen Ur Leukocyte Esterase Urine RBC Urine WBC Ur Squamous Epith Cells Amorphous Sediment Urine Bacteria Ur Culture Indicated? SARS-CoV-2 (PCR) Influenza A (RT-PCR) Influenza B (RT-PCR) RSV (PCR) 05/06/22 05/07/22 05/07/22 18:40 07:34 07:34 WBC 12.3 H RBC 5.02 Hgb 13.6 Hct 42.2 MCV 84.0 MCH 27.0 MCHC 32.2 RDW 14.7 Plt Count 226 Neut % (Auto) 80.1 H Lymph % (Auto) 4.4 L [place] % (Auto) 14.9 H Eos % (Auto) 0.2 L Baso % (Auto) 0.4 Neut # (Auto) 9800 H Lymph # (Auto) 500 L [place] # (Auto) 1800 H Eos # (Auto) 0 Baso # (Auto) 0 Sodium 138 Potassium 4.2 Chloride 99 Carbon Dioxide 29 BUN 24 H Creatinine 1.00 Estimated GFR > 60 BUN/Creatinine Ratio 24.0 H Glucose 124 H Lactate Calcium 8.5 Magnesium 2.4 H Total Bilirubin 1.1 AST 26 ALT 25 Alkaline Phosphatase 97 Total Creatine Kinase CK-MB (CK-2) CK-MB (CK-2) Rel Index Troponin I 0.054 H NT-Pro-B Natriuret Pep Total Protein 6.7 Albumin 3.5 Globulin 3.2 Albumin/Globulin Ratio 1.1 Procalcitonin 1.72 H Urine Color Urine Appearance Urine pH Ur Specific [place] Urine Protein Urine Glucose (UA) Urine Ketones Urine Occult Blood Urine Nitrate Urine Bilirubin Urine Urobilinogen Ur Leukocyte Esterase Urine RBC Urine WBC Ur Squamous Epith Cells Amorphous Sediment Urine Bacteria Ur Culture Indicated? SARS-CoV-2 (PCR) Influenza A (RT-PCR) Influenza B (RT-PCR) RSV (PCR) 05/07/22 08:55 WBC RBC Hgb Hct MCV MCH MCHC RDW Plt Count Neut % (Auto) Lymph % (Auto) [place] % (Auto) Eos % (Auto) Baso % (Auto) Neut # (Auto) Lymph # (Auto) [place] # (Auto) Eos # (Auto) Baso # (Auto) Sodium Potassium Chloride Carbon Dioxide BUN Creatinine Estimated GFR BUN/Creatinine Ratio Glucose Lactate Calcium Magnesium Total Bilirubin AST ALT Alkaline Phosphatase Total Creatine Kinase CK-MB (CK-2) CK-MB (CK-2) Rel Index Troponin I NT-Pro-B Natriuret Pep Total Protein Albumin Globulin Albumin/Globulin Ratio Procalcitonin Urine Color Yellow Urine Appearance Clear Urine pH 5.0 Ur Specific [place] 1.020 Urine Protein Trace H Urine Glucose (UA) Negative Urine Ketones Trace H Urine Occult Blood Trace-lysed Urine Nitrate Negative Urine Bilirubin Negative Urine Urobilinogen 0.2 Ur Leukocyte Esterase Negative Urine RBC 0-1/hpf Urine WBC 0-1/hpf Ur Squamous Epith Cells 0-1 /hpf Amorphous Sediment 1+ Urine Bacteria Occasional (0-1) Ur Culture Indicated? Specimen cultured SARS-CoV-2 (PCR) Influenza A (RT-PCR) Influenza B (RT-PCR) RSV (PCR) [facility] Medical History CHF (congestive heart failure) Chronic atrial fibrillation (07/13/15) Chronic obstructive pulmonary disease (07/13/15) Essential hypertension (07/13/15) Surgical History S/P hernia surgery S/P TURP Family History Mother No pertinent past medical history Father No pertinent past medical history Social History household members: spouse Smoking Status: Former smoker alcohol intake: never Assessment & Plan Assessment & Plan narrative: This is an 81 year old male with PMH of chronic atrial fibrillation, COPD, CHF (unknown EF) who presents with shortness of breath admitted for further management of presumed bacterial pneumonia and COPD exacerbation. 1. Acute respiratory failure with hypoxia, present on admission - likely secondary to acute infection with COPD exacerbation as discussed below. Worsened today in setting of holding diuretics initially for sepsis, will diurese today. - continue to wean from O2, goal O2 should be 88-92% while on supplemental oxygen given COPD history. 2. Sepsis secondary to bilateral Bacterial community acquired pneumonia , acute, present on admission with acute respiratory failure with hypoxia, elevated troponin, and Hyperbilirubinemia. - PSI class IV risk, high risk of morbidity and mortality. - continue ceftriaxone and azithromycin - patient did meet SIRS criteria, SOFA score of 2 on admission. - did not give sepsis fluid bolus over concern for patient's underlying heart failure at this time and the possibility this could worsen his respiratory status. BP improved today so will diurese as discussed below. - WBC slightly improved today, procalcitonin downtrended. 3. COPD with exacerbation - prednisone 40 mg daily x5 days - RT eval and treat. Continue formulary nebulizer equivalents to his home medications during admission along with albuterol prn. 4. Acute on Chronic heart failure, type unknown - TTE with normal EF of 60-65%. - will diurese cautiously today with 40 mg IV daily given concurrent sepsis. 5. chronic atrial fibrillation with RVR - held home beta saji for now until BP improved. suspect RVR in setting of active infection. Resumed home coreg but may need further adjusments. Code: Full, surrogate decision maker is his . DVT: on apixaban for afib Dispo: patient admitted as an inpatient given high risk of morbidity and mortality from his acute infection in the setting of his underlying chronic medical conditions and expected stay beyond 2 midnights. I have utilized all available immediate resources to obtain, update, or review t he patient's current medications. COVID-19 COVID-19 status: Negative Result date/Date tested (Pos, Neg/Pending): 05/06/22 Time Spent With Patient Critical Care time: I spent a total of [] minutes of critical care time on this patient's care today; this time is exclusive of procedural time. Quality VTE Deep Vein Thrombosis/Pulmonary Embolism Present on Admission: No
--- NOTE | 2022-05-07 13:32 | PC.NURSE ---
Pt is alert and oriented x4, VS currently, and remains afrebrile. Pt denies px at this time. Tele shows AFIB, pt's HR did jump to the 140s late this morning, notified provider. During assessment, pt was coughing intermittently, producing sputum, continues to wheeze. Pt is on 4L 92% SaO2. Pts' lungs sounded coarse in all young, mild crackles, and wheezes noted. Pt does appear fatigued and lethargic. Pt has not gotten up for this SRN, Lasix administered and condom catheter applied. Pt is currently visiting with family.
--- NOTE | 2022-05-07 14:22 | CM.DANOTE ---
Initial DCP Assessment Note Pt is an 81 yo male, resident of [place], arrives w/shortness of breath, admitted inpatient for management of pneumonia and COPD exacerbation PCP: [facility]- [place] Payer: LYDIA/NEYMAR Reviewed chart, met w/patient, spouse and their grand dtr (visiting from [place]), introduced self and role. Patient and spouse live on [place], indp and active at baseline. Their dtr lives on [place] as well. Spouse is approx 15 yrs younger than patient and feels confident in patient's return home when medically cleared Discussed HH services; patient has no hx of HH, says he will consider No barriers identified at this time to patient's safe discharge home w/family to assist; PT eval may be beneficial closer to DC, r/o need for [place] [facility] services ([facility]) GERMAN [place] Discharge Planning/Care Management CM Discharge Assessment Start: 05/07/22 14:21 Freq: Status: Active Protocol: Document 05/07/22 14:21 SYDNEY (Rec: 05/07/22 14:22 SYDNEY [id number]) Discharge Planning Assessment Assigned Machine Bender GERMAN Manuel DPOA/Assigned Designee Name Leonor Nam, spouse Contact Information [phone] cell Advance Directives? No History Provided By Patient,Family Member, Significant Other,Medical Record Prior Living Arrangements House Household Members spouse Type of transporation used prior to Drives own vehicle admit Independent with ADL's Yes Is patient alert and oriented? Yes Barriers to Discharge No Comment May benefit from HH upon DC, patient/spouse considering Discharge Plan Home Transportation Arrangement Family Referrals Initiated None needed
[2022-05-07] MEDS: cefTRIAXone 1,000 MG in SODIUM CHLORIDE 0.9% 100 ML 200 MG IV (14:36)
[2022-05-07] MEDS: AZITHROMYCIN 500 MG in DEXTROSE 5% IN WATER 250 ML 250 MG IV (15:20)
[2022-05-07] MEDS: predniSONE 20 MG TABLET 40 MG PO (17:08)
--- NOTE | 2022-05-07 17:31 | PC.NURSE ---
Patient given lasix this mid day, condom cath put in and this has stayed in place. Patient has an adequate amount of urine in his lopez bag. He denies pain, ate better at dinner time.
[2022-05-08] VITALS (11 sets, daily range): BP systolic 106–134; BP diastolic 65–99; PULSE 73–121; RESP 18–24; TEMP 36.3–36.9; O2SAT 91–95
--- NOTE | 2022-05-08 04:33 | PC.NURSE ---
stage 1 pressure ulcer to sacral area
[2022-05-08 07:00] LABS: Add Manual Diff / Slide Review NO; Basophils Absolute Auto 0 /uL (0-100); Basophils Percent Auto 0.1 % (0-2); Eosinophils Absolute Auto 0 /uL (0-450); Hematocrit 38.6 % (41-53); Hemoglobin 12.7 g/dL (13.5-17.5); Lymphocytes Absolute Auto 400 /uL (1100-4500); Lymphocytes Percent Auto 4.6 % (25-40); Mean Corpuscular Hemoglobin 27.5 PG (26-34); Mean Corpuscular Volume 83.3 fL (80-100); Monocytes Absolute Auto 800 /uL (0-900); Monocytes Percent Auto 9.7 % (3-14); Neutrophils Absolute Auto 6700 /uL (1500-7000); Neutrophils Percent Auto 85.6 % (50-75); Platelet Count 210 X10^3/uL (150-400); Red Blood Cell Count 4.63 X10^6/uL (4.5-5.9); Red Cell Distribution Width 14.2 % (11.6-14.8); White Blood Cell Count 7.8 X10^3/uL (4.5-11.0)
[2022-05-08 07:14] LABS: Alanine Aminotransferase 24 IU/L (<50); Albumin 3.2 g/dL (3.5-5.0); Albumin Globulin Ratio 1.1 (1.0-2.8); Alkaline Phosphatase 81 U/L (38-126); Aspartate Aminotransferase 22 IU/L (17-59); BUN Creatinine Ratio 30.3 (6-22); Bilirubin Total 0.5 mg/dL (0.2-1.3); Blood Urea Nitrogen 36 mg/dL (9-20); Calcium 8.1 mg/dL (8.4-10.2); Carbon Dioxide 33 mmol/L (22-32); Chloride 97 mmol/L (98-107); Estimated Glomerular Filt Rate > 60 mL/min (>60); Glucose 205 mg/dL (80-110); HEMOLYSIS < 15 (0-50); Magnesium 2.6 mg/dL (1.6-2.3); Potassium 4.4 mmol/L (3.4-5.1); Sodium 137 mmol/L (137-145); Total Protein 6.2 g/dL (6.3-8.2)
[2022-05-08] MEDS: BUDESONIDE 0.5 MG/2 ML NEB INH ×2 (07:39→18:59)
[2022-05-08] MEDS: ALBUTEROL/IPRATROPIUM 3 ML AMPUL INH ×3 (07:39→18:58)
[2022-05-08] MEDS: FUROSEMIDE 40 MG/4 ML VIAL IV (08:06)
[2022-05-08] MEDS: APIXABAN 5 MG TABLET PO ×2 (08:07→20:27)
[2022-05-08] MEDS: carvediloL 3.125 MG TABLET 6.25 MG PO (08:07)
[2022-05-08] MEDS: predniSONE 20 MG TABLET 40 MG PO (08:07)
[2022-05-08] MEDS: SODIUM CHLORIDE 0.9% FLUSH 10 ML IV ×2 (08:07→20:29)
--- NOTE | 2022-05-08 10:36 | CM.DPC ---
DCP Cont: Discussed patient during team rounds. Hospitalist indicated that patient is not yet ready for discharge. Patient is here for Pneumonia, COPD exacerbation. Notes indicate that patient resides on [place] with spouse, and that daughter lives nearby. Home health was brought up to patient, as indicated by [employer], but patient may consider. [facility] would be the only agency to serve [place]. P: DCP to continue to follow for needs. Plan is home when patient is deemed medically stable. Fide Peace RN/Clothing Examiner
[2022-05-08] MEDS: cefTRIAXone 1,000 MG in SODIUM CHLORIDE 0.9% 100 ML 200 MG IV (14:43)
[2022-05-08] MEDS: AZITHROMYCIN 500 MG in DEXTROSE 5% IN WATER 250 ML 250 MG IV (16:25)
--- NOTE | 2022-05-08 18:35 | PM.PN.1 ---
Subjective Subjective Date Patient Seen: 05/08/22 Time Patient Seen: 08:00 Interval history: He feels he is improving. But he remains short of breath and requiring oxygen. His cough has improved. Exam Vital Signs (past 8 hours): - 05/08/22 13:17 05/08/22 13:45 Temperature 97.6 F Pulse Rate 94 H 85 Respiratory Rate 18 24 Blood Pressure 134/81 Pulse Oximetry 92 91 Oxygen Delivery Method Nasal Cannula Oxygen Flow Rate 2 2 Fraction of Inspired Oxygen 28 Fraction of Inspired Oxygen 28 SaO2/FiO2 Ratio 328 Oxygen Delivery Method Nasal Cannula Oxygen Flow Rate 2 Narrative Exam Narrative: General:? Fatigued and ill appearing Lungs:?poor breath sounds bilaerally Cardio:?irregular and tachycardic Extremities: No edema or joint effusions. No cyanosis or clubbing. Objective Labs Result Diagrams: 05/08/22 06:30 05/08/22 06:30 Labs: Laboratory Results - last 24 hr 05/08/22 05/08/22 06:30 06:30 WBC 7.8 RBC 4.63 Hgb 12.7 L Hct 38.6 L MCV 83.3 MCH 27.5 MCHC 33.0 RDW 14.2 Plt Count 210 Neut % (Auto) 85.6 H Lymph % (Auto) 4.6 L [place] % (Auto) 9.7 Eos % (Auto) 0.0 L Baso % (Auto) 0.1 Neut # (Auto) 6700 Lymph # (Auto) 400 L [place] # (Auto) 800 Eos # (Auto) 0 Baso # (Auto) 0 Sodium 137 Potassium 4.4 Chloride 97 L Carbon Dioxide 33 H BUN 36 H Creatinine 1.19 Estimated GFR > 60 BUN/Creatinine Ratio 30.3 H Glucose 205 H Calcium 8.1 L Magnesium 2.6 H Total Bilirubin 0.5 AST 22 ALT 24 Alkaline Phosphatase 81 Total Protein 6.2 L Albumin 3.2 L Globulin 3.0 Albumin/Globulin Ratio 1.1 [facility] Medical History CHF (congestive heart failure) Chronic atrial fibrillation (07/13/15) Chronic obstructive pulmonary disease (07/13/15) Essential hypertension (07/13/15) Surgical History S/P hernia surgery S/P TURP Family History Mother No pertinent past medical history Father No pertinent past medical history Social History household members: spouse Smoking Status: Former smoker alcohol intake: never Assessment & Plan Assessment & Plan narrative: This is an 81 year old male with PMH of chronic atrial fibrillation, COPD, CHF (unknown EF) who presents with shortness of breath admitted for further management of presumed bacterial pneumonia and COPD exacerbation. 1. Acute respiratory failure with hypoxia, present on admission - likely secondary to acute infection with COPD exacerbation as discussed below. - continue to wean from O2, goal O2 should be 88-92% while on supplemental oxygen given COPD history. 2. Sepsis secondary to bilateral Bacterial community acquired pneumonia , acute, present on admission with acute respiratory failure with hypoxia, elevated troponin, and Hyperbilirubinemia. - PSI class IV risk, high risk of morbidity and mortality. - continue ceftriaxone and azithromycin - patient did meet SIRS criteria, SOFA score of 2 on admission. -WBC now normal 3. COPD with exacerbation - prednisone 40 mg daily x5 days - RT eval and treat. Continue formulary nebulizer equivalents to his home medications during admission along with albuterol prn. 4.Acute CHF exacerbation ruled out - TTE with normal EF of 60-65%. - continue home torsemide to keep euvolemic 5. chronic atrial fibrillation with RVR - resumed beta-saji with better rate control COVID-19 COVID-19 status: Negative Result date/Date tested (Pos, Neg/Pending): 05/06/22 Time Spent With Patient Critical Care time: I spent a total of [] minutes of critical care time on this patient's care today; this time is exclusive of procedural time. Quality VTE Deep Vein Thrombosis/Pulmonary Embolism Present on Admission: No
[2022-05-08] MEDS: carvediloL 3.125 MG TABLET 12.5 MG PO (20:27)
[2022-05-09] VITALS (12 sets, daily range): BP systolic 98–146; BP diastolic 74–92; PULSE 80–118; RESP 16–22; TEMP 36.3–36.7; O2SAT 90–96
[2022-05-09] MEDS: ALBUTEROL 2.5 MG/3 ML NEB (ADULT) INH (02:10)
[2022-05-09] MEDS: ACETAMINOPHEN 325 MG TABLET 650 MG PO (03:19)
--- NOTE | 2022-05-09 06:55 | PC.NURSE ---
Pt called this am and wondering when she could speak with the doctor to see what the plan of care is. She also mentioned that pt doesn't want to have CPR but he would be OK with a being on a ventilator for a short term. Pt and spouse spouse are currently putting their dog Phybi down due to health issues.
[2022-05-09 07:02] LABS: Mean Corpuscular HGB Conc 32.6 % (30-36); Mean Corpuscular Hemoglobin 27.1 PG (26-34); Mean Corpuscular Volume 82.9 fL (80-100); Platelet Count 239 X10^3/uL (150-400); Red Blood Cell Count 4.82 X10^6/uL (4.5-5.9); Red Cell Distribution Width 14.6 % (11.6-14.8); White Blood Cell Count 11.1 X10^3/uL (4.5-11.0)
[2022-05-09 07:04] LABS: Blood Urea Nitrogen 38 mg/dL (9-20); Calcium 8.5 mg/dL (8.4-10.2); Carbon Dioxide 31 mmol/L (22-32); Chloride 100 mmol/L (98-107); Estimated Glomerular Filt Rate > 60 mL/min (>60); Glucose 137 mg/dL (80-110); HEMOLYSIS < 15 (0-50); Magnesium 2.6 mg/dL (1.6-2.3); Potassium 4.5 mmol/L (3.4-5.1); Sodium 135 mmol/L (137-145)
[2022-05-09] MEDS: ALBUTEROL/IPRATROPIUM 3 ML AMPUL INH ×3 (07:43→21:26)
[2022-05-09] MEDS: BUDESONIDE 0.5 MG/2 ML NEB INH ×2 (07:43→21:26)
[2022-05-09] MEDS: APIXABAN 5 MG TABLET PO ×2 (08:16→21:48)
[2022-05-09] MEDS: predniSONE 20 MG TABLET 40 MG PO (08:17)
[2022-05-09] MEDS: TORSEMIDE 10 MG TABLET 40 MG PO (08:17)
[2022-05-09] MEDS: carvediloL 3.125 MG TABLET 12.5 MG PO ×2 (08:17→21:47)
[2022-05-09] MEDS: SODIUM CHLORIDE 0.9% FLUSH 10 ML IV ×2 (08:18→21:47)
--- NOTE | 2022-05-09 10:16 | CM.DPC ---
DCP Cont: Discussed patient during team rounds. Was noted by hospitalist that patient is not yet ready for discharge secondary to lung sounds, oxygen. Asked if P.T. can be ordered since patient has been here since patient has been here since the 4th, and that home health was also mentioned. Patient resides on [place] with spouse, Leonor. Went ahead and placed P.T. orders per hospitalist. P: DCP to continue to follow. Added P.T. orders. Patient should be able to go home when medically stable, may add home health. Fide Peace RN/Production Staff Worker
--- NOTE | 2022-05-09 12:18 | PM.PN.1 ---
Subjective Subjective Date Patient Seen: 05/09/22 Time Patient Seen: 08:00 Interval history: He feels improved since he arrived. However he continues to be short of breath, have a cough, and hoarse voice. Exam Vital Signs (past 8 hours): - 05/09/22 07:00 05/09/22 07:30 05/09/22 07:44 Temperature 97.6 F Pulse Rate 80 97 H Respiratory Rate 18 18 Blood Pressure 112/92 H 98/74 Pulse Oximetry 96 94 Oxygen Delivery Method Nasal Cannula Oxygen Flow Rate 4.5 4 Fraction of Inspired Oxygen 36 05/09/22 08:17 05/09/22 11:00 Temperature 97.4 F L Pulse Rate 97 H 113 H Respiratory Rate 20 Blood Pressure 98/74 132/78 Pulse Oximetry 95 Oxygen Delivery Method Oxygen Flow Rate 0 Fraction of Inspired Oxygen Fraction of Inspired Oxygen 36 SaO2/FiO2 Ratio 261 Oxygen Delivery Method Nasal Cannula Oxygen Flow Rate 0 Narrative Exam Narrative: General:? Fatigued and ill appearing Lungs:?poor breath sounds bilaerally Cardio:?irregular and tachycardic Extremities: No edema or joint effusions. No cyanosis or clubbing. Objective Labs Result Diagrams: 05/09/22 06:45 05/09/22 06:45 Labs: Laboratory Results - last 24 hr 05/09/22 05/09/22 05/09/22 06:45 06:45 06:45 WBC 11.1 H RBC 4.82 Hgb 13.0 L Hct 40.0 L MCV 82.9 MCH 27.1 MCHC 32.6 RDW 14.6 Plt Count 239 Sodium 135 L Potassium 4.5 Chloride 100 Carbon Dioxide 31 BUN 38 H Creatinine 0.95 Estimated GFR > 60 BUN/Creatinine Ratio 40.0 H Glucose 137 H Calcium 8.5 Magnesium 2.6 H PFSH Medical History CHF (congestive heart failure) Chronic atrial fibrillation (07/13/15) Chronic obstructive pulmonary disease (07/13/15) Essential hypertension (07/13/15) Surgical History S/P hernia surgery S/P TURP Family History Mother No pertinent past medical history Father No pertinent past medical history Social History household members: spouse Smoking Status: Former smoker alcohol intake: never Assessment & Plan Assessment & Plan narrative: This is an 81 year old male with PMH of chronic atrial fibrillation, COPD, CHF (unknown EF) who presents with shortness of breath admitted for further management of presumed bacterial pneumonia and COPD exacerbation. 1. Acute respiratory failure with hypoxia, present on admission - likely secondary to acute infection with COPD exacerbation as discussed below. - continue to wean from O2, goal O2 should be 88-92% while on supplemental oxygen given COPD history. 2. Sepsis secondary to bilateral Bacterial community acquired pneumonia , acute, present on admission with acute respiratory failure with hypoxia, elevated troponin, and Hyperbilirubinemia. - PSI class IV risk, high risk of morbidity and mortality. - continue ceftriaxone and azithromycin - patient did meet SIRS criteria, SOFA score of 2 on admission. 3. COPD with exacerbation - prednisone 40 mg daily - RT eval and treat. Continue formulary nebulizer equivalents to his home medications during admission along with albuterol prn. 4.Acute CHF exacerbation ruled out - TTE with normal EF of 60-65%. - continue home torsemide to keep euvolemic 5. chronic atrial fibrillation with RVR - resumed beta-saji with better rate control COVID-19 COVID-19 status: Negative Result date/Date tested (Pos, Neg/Pending): 05/06/22 Time Spent With Patient Critical Care time: I spent a total of [] minutes of critical care time on this patient's care today; this time is exclusive of procedural time. Quality VTE Deep Vein Thrombosis/Pulmonary Embolism Present on Admission: No
--- NOTE | 2022-05-09 14:15 | PT.IIE ---
Current Diagnoses Pneumonia, unspecified organism (05/06/22) Surgical History (Last Reviewed 05/06/22 @ 16:12 by Elvis Gonzalez DO) S/P hernia surgery S/P TURP Medical History (Last Reviewed 05/06/22 @ 16:12 by Elvis Gonzalez DO) CHF (congestive heart failure) Chronic atrial fibrillation (07/13/15) Chronic obstructive pulmonary disease (07/13/15) Essential hypertension (07/13/15) Physical Therapy Inpatient Evaluation/Re-Eval M1 PT/OT-IP Prior Functional Status Start: 05/09/22 13:36 Freq: NEEDED Status: Active Protocol: Document 05/09/22 14:15 AW (Rec: 05/09/22 15:02 AW [id number]) Medical Review Prior Functional Status Medical History Reviewed Yes Communication WNL. Pt is an effective verbal communicator. Mobility and Gait Pt reports independent mobility without use of assistive device. He is typically able to walk around his house and to the car. He takes the garbage out to the curb but needs to rest afterward. Activities of Daily Living and IADL's Pt has SBA for showers but is otherwise independent with ADL 's. 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 Prior Functional Level (Other details) Pt has never had any home O2 needs. Social History Household Members spouse Living Arrangements House Number of Floors (Floors) Two Floors Number of Stairs To Enter/Railing? 2 YUMI with L rail ascending. 13 steps up to the second level with pt's office. Pt is able to stay on the main level if needed. Home Environment Standard Height Toilet,Tub/ Shower,Bidet Home Equipment Straight Cane,Shower Seat without Backrest Additional Social History Comment Pt lives on [address] with his , Leonor. A daughter lives nearby. He has an adjustable bed. M2 PT-IP Current Condition Start: 05/09/22 13:36 Freq: NEEDED Status: Active Protocol: Document 05/09/22 14:15 AW (Rec: 05/09/22 15:02 AW [id number]) Physical Therapy Current Condition Current Condition Evaluation Date 05/09/22 Treatment Diagnosis COPD exacerbation; impaired mobility and gait Onset Date 05/06/22 M3 PT-IP Subjective Start: 05/09/22 13:36 Freq: NEEDED Status: Active Protocol: Document 05/09/22 14:15 AW (Rec: 05/09/22 15:02 AW [id number]) Subjective Physical Therapy Visit Type Type Initial Evaluation Visit Start Time 13:52 Visit Stop Time 14:15 Total Visit Minutes 23 Physical Therapy Visit Comments Patient Comments Pt is willng to participate with PT Patient Goals Return home with family support Therapy Pain Assessment Pain When Pain Assessed During Mobility Pain Present Pain Present Denied Pain M4 PT-IP Mobility and Gait Start: 05/09/22 13:36 Freq: NEEDED Status: Active Protocol: Document 05/09/22 14:15 AW (Rec: 05/09/22 15:02 AW [id number]) PT-Transfer Assessment Sit to and From Stand Sit to and from Stand Contact Guard Assistance,Use of Upper Extremities Equipment Transfer Assistive Device None,Gait Belt,Front Wheeled Walker Orthotic/Prosthetic Devices or Brace: No Transfers Transfer Destination Chair Transfer Technique ambulated with FWW Transfer Ability Level of Assist Contact Guard Assistance,Use of Upper Extremities Comments Mobility Comments Pt was sitting up in the chair as PT arrived. BP 117/68 HR 101 SpO2 93% on 4.5 L/min O2 via NC. He struggled with SOB as he talked and needed frequent breaks in conversation to recover. He stood from the chair CGA and was able to shift weight standing in place but requested to sit after 1 minute. SpO2 was stable. Pt then agreed to trial ambulation with FWW. He stood and used FWW to walk 30 feet in the room CGA with (+) SOB and HR up to 125 in a fib. SpO2 dropped to 84%. Pt sat on the chair and PT educated on pursed lip breathing. SpO2 took 3 minutes to recover to 92%. Pt was left in the chair with call light in reach. Gait Assessment Gait Gait Assistance Required: Contact Guard Assist Distance (Feet) 30 Assistive Devices Assistive Device Gait Belt,Front Wheeled Walker Orthotic/Prosthetic Devices or Brace: No Gait Deviations General Gait Pattern Decreased Stride Length, Decreased Feet Clearance, Flexed Trunk,Wide Based Gait Factors Limiting Gait Function Factors Limiting Gait Function Decreased Strength,Respiratory Distress Comments Gait Comments See mobility comments for details. Stair Climbing Assessment Comments Stair Climbing Comments Not assessed. PT-Balance Assessment Sitting Balance and Reactions Static Sitting Balance Ability Normal Dynamic Sitting Balance Ability Normal Standing Balance and Reactions Static Standing Balance Ability Good Dynamic Standing Balance Ability Fair Device Used FWW M5 PT-IP Objective Assessments Start: 05/09/22 13:36 Freq: NEEDED Status: Active Protocol: Document 05/09/22 14:15 AW (Rec: 05/09/22 15:02 AW [id number]) Orientation Orientation/Cognition Level of Alertness Alert Orientation Name,Day of Week,Place, Situation Language Function Ability No Deficits Noted Safety Awareness Understands Safety Issues Comments Communication limited by SOB. Gross Range of Motion Lower Extremity ROM Assessment Within Functional Limits Strength Lower Extremity Strength Assessment Bilaterally Impaired Hip 4/5 Knee 4/5 Ankle 4+/5 DF; 4-/5 PF Sensation Assessment Sensation Gross Sensation WNL M6 PT-IP Treatment Start: 05/09/22 13:36 Freq: NEEDED Status: Active Protocol: Document 05/09/22 14:15 AW (Rec: 05/09/22 15:02 AW [id number]) Physical Therapy Treatment Education Education Provided Safety Other Treatments Other Treatment Performed Educated pt on recommendation to use FWW for steadiness and energy conservation. Pt agreeable. M7 PT-IP Assessment and Plan Start: 05/09/22 13:36 Freq: NEEDED Status: Active Protocol: Document 05/09/22 14:15 AW (Rec: 05/09/22 15:02 AW [id number]) PT Summary Assessment and Plan Potential Rehabilitation Potential Good Status of Condition at Evaluation Evolving Summary Impairments Strength,Balance,Bed Mobility, Transfers,Gait,Activity Tolerance Assessment Summary Shahid is an 81 yo man with admitting diagnosis of COPD exacerbation and hypoxic respiratory failure. He is independently mobile at baseline but admits to limited activity tolerance due to shortness of breath. On assessment today, pt's SpO2 was 93% on 4.5 L/min O2 at rest but dropped to 84% with 30 feet ambulation using FWW. Pt will need to improve tolerance for functional gait distances for safe return home which is his preference. PT recommending use of FWW at this time for energy conservation. Pt would benefit from PT to progress strength and mobility independence at discharge. Goals Bed Mobility Goal Independent Transfer Goal Independent,Front Wheeled Walker Gait Goal Independent,Front Wheel Walker Gait Distance 150 Other Goals - up/down 2 steps with L rail SBA - improve transfers and gait to SBA without AD Days to Meet Goals 8 Frequency of Treatment Frequency Of Treatment Once a Day Treatment Plan Physical Therapy Treatment Plan Bed Mobility Training,Transfer Training,Gait Training, Therapeutic Exercise,Balance Retraining,Discharge Planning, Hot or Cold Pack,Neuromuscular Re-ed Precautions Other Precautions O2 sat Recommendations To Nursing Amount of Assist Needed 1 Person Assist Discharge Recommendations PT Discharge Recommendations Home with Assistance,Home Health Equipment Needed for Home Before FWW if unsafe without Discharge Transportation Needs at Discharge Private Vehicle
[2022-05-09] MEDS: cefTRIAXone 1,000 MG in SODIUM CHLORIDE 0.9% 100 ML 200 MG IV (14:18)
[2022-05-10] VITALS (14 sets, daily range): BP systolic 112–141; BP diastolic 63–85; PULSE 87–121; RESP 16–22; TEMP 36.2–36.4; O2SAT 92–97
[2022-05-10] MEDS: ACETAMINOPHEN 325 MG TABLET 650 MG PO ×2 (06:41→12:18)
[2022-05-10 06:44] LABS: Hemoglobin 13.3 g/dL (13.5-17.5); Mean Corpuscular HGB Conc 33.3 % (30-36); Mean Corpuscular Hemoglobin 27.6 PG (26-34); Mean Corpuscular Volume 82.9 fL (80-100); Platelet Count 245 X10^3/uL (150-400); Red Blood Cell Count 4.82 X10^6/uL (4.5-5.9); Red Cell Distribution Width 14.3 % (11.6-14.8); White Blood Cell Count 9.4 X10^3/uL (4.5-11.0)
[2022-05-10 06:52] LABS: Blood Urea Nitrogen 44 mg/dL (9-20); Calcium 8.1 mg/dL (8.4-10.2); Carbon Dioxide 36 mmol/L (22-32); Chloride 99 mmol/L (98-107); Estimated Glomerular Filt Rate > 60 mL/min (>60); Glucose 119 mg/dL (80-110); HEMOLYSIS < 15 (0-50); Potassium 4.2 mmol/L (3.4-5.1); Sodium 141 mmol/L (137-145)
[2022-05-10 06:58] LABS: NT-proBNP (BNP-Adult 18+) 2730 pg/mL (<450)
[2022-05-10 07:06] LABS: Procalcitonin 0.39 ng/mL (<0.5)
[2022-05-10] MEDS: ALBUTEROL/IPRATROPIUM 3 ML AMPUL INH ×3 (07:22→18:18)
[2022-05-10] MEDS: BUDESONIDE 0.5 MG/2 ML NEB INH ×2 (07:22→18:18)
[2022-05-10] MEDS: carvediloL 3.125 MG TABLET 12.5 MG PO ×2 (08:06→21:49)
[2022-05-10] MEDS: APIXABAN 5 MG TABLET PO ×2 (08:07→21:49)
[2022-05-10] MEDS: SODIUM CHLORIDE 0.9% FLUSH 10 ML IV ×2 (08:07→21:48)
[2022-05-10] MEDS: TORSEMIDE 10 MG TABLET 40 MG PO ×2 (08:07→18:38)
[2022-05-10] MEDS: predniSONE 20 MG TABLET 40 MG PO (08:07)
[2022-05-10] MEDS: ALBUTEROL 2.5 MG/3 ML NEB (ADULT) INH ×2 (10:47→23:13)
--- NOTE | 2022-05-10 11:19 | CM.DPC ---
DCP Cont: Met with patient and spouse, Leonor, at bedside. Hospitalist indicated that patient on 2 liters of oxygen, not yet ready for discharge as of yet. Mentioned home health, and [place] [facility] [place] Spouse thinks that home health would be a good idea, patient still reluctant for home health. Spouse will discuss further with patient. P: DCP to continue to follow Plan is home when stable, may have home health, [facility], but spouse will discuss with patient. Fide Peace RN/Concrete Truck Driver
--- NOTE | 2022-05-10 11:23 | PM.PN.1 ---
Subjective Subjective Date Patient Seen: 05/10/22 Time Patient Seen: 08:00 Interval history: He feels he has had minor improvement. Still with a cough, still short of breath. Still requiring oxygen, when seen now at 2L. Exam Vital Signs (past 8 hours): - 05/10/22 04:30 05/10/22 05:00 05/10/22 05:05 Temperature 97.3 F L Pulse Rate 89 104 H 98 H Respiratory Rate 17 20 Blood Pressure 118/63 Pulse Oximetry 97 95 93 Oxygen Delivery Method Oxygen Flow Rate 4 4 3 Fraction of Inspired Oxygen 05/10/22 06:25 05/10/22 06:29 05/10/22 07:22 Temperature Pulse Rate 96 H 92 H Respiratory Rate Blood Pressure Pulse Oximetry 96 94 Oxygen Delivery Method Nasal Cannula Oxygen Flow Rate 3 2 2 Fraction of Inspired Oxygen 95 05/10/22 08:06 05/10/22 08:36 Temperature 97.1 F L Pulse Rate 92 H Respiratory Rate 20 Blood Pressure 118/83 Pulse Oximetry Oxygen Delivery Method Oxygen Flow Rate Fraction of Inspired Oxygen Fraction of Inspired Oxygen 95 SaO2/FiO2 Ratio 258 Oxygen Delivery Method Nasal Cannula Oxygen Flow Rate 2 Narrative Exam Narrative: General:? Fatigued and ill appearing Lungs: breat sounds bilaterally remain diminished but less wheezing than yesterday Cardio:?irregular and tachycardic Extremities: No edema or joint effusions. No cyanosis or clubbing. Objective Labs Result Diagrams: 05/10/22 06:21 05/10/22 06:21 Labs: Laboratory Results - last 24 hr 05/10/22 05/10/22 06:21 06:21 WBC 9.4 RBC 4.82 Hgb 13.3 L Hct 40.0 L MCV 82.9 MCH 27.6 MCHC 33.3 RDW 14.3 Plt Count 245 Sodium 141 Potassium 4.2 Chloride 99 Carbon Dioxide 36 H BUN 44 H Creatinine 1.10 Estimated GFR > 60 BUN/Creatinine Ratio 40.0 H Glucose 119 H Calcium 8.1 L NT-Pro-B Natriuret Pep 2730 H Procalcitonin 0.39 PFSH Medical History CHF (congestive heart failure) Chronic atrial fibrillation (07/13/15) Chronic obstructive pulmonary disease (07/13/15) Essential hypertension (07/13/15) Surgical History S/P hernia surgery S/P TURP Family History Mother No pertinent past medical history Father No pertinent past medical history Social History household members: spouse Smoking Status: Former smoker alcohol intake: never Assessment & Plan Assessment & Plan narrative: This is an 81 year old male with PMH of chronic atrial fibrillation, COPD, CHF (unknown EF) who presents with shortness of breath admitted for further management of presumed bacterial pneumonia and COPD exacerbation. 1. Acute respiratory failure with hypoxia, present on admission - likely secondary to acute infection with COPD exacerbation as discussed below. - continue to wean from O2, goal O2 should be 88-92% while on supplemental oxygen given COPD history. 2. Sepsis secondary to bilateral Bacterial community acquired pneumonia , acute, present on admission with acute respiratory failure with hypoxia, elevated troponin, and Hyperbilirubinemia. - PSI class IV risk, high risk of morbidity and mortality. - continue ceftriaxone and azithromycin - patient did meet SIRS criteria, SOFA score of 2 on admission. 3. COPD with exacerbation - prednisone 40 mg daily - RT eval and treat. Continue formulary nebulizer equivalents to his home medications during admission along with albuterol prn. 4.Acute CHF exacerbation ruled out - TTE with normal EF of 60-65%. - continue home torsemide to keep euvolemic -may give dose of IV lasix in the afternoon if I/Os remain positive 5. chronic atrial fibrillation with RVR - resumed beta-saji with better rate control COVID-19 COVID-19 status: Negative Result date/Date tested (Pos, Neg/Pending): 05/06/22 Time Spent With Patient Critical Care time: I spent a total of [] minutes of critical care time on this patient's care today; this time is exclusive of procedural time. Quality VTE Deep Vein Thrombosis/Pulmonary Embolism Present on Admission: No
--- NOTE | 2022-05-10 11:39 | PT.IPTN ---
Current Diagnoses Pneumonia, unspecified organism (05/06/22) Physical Therapy Treatment Note M2 PT-IP Current Condition Start: 05/09/22 13:36 Freq: NEEDED Status: Active Protocol: Document 05/09/22 14:15 AW (Rec: 05/09/22 15:02 AW [id number]) Physical Therapy Current Condition Current Condition Evaluation Date 05/09/22 Treatment Diagnosis COPD exacerbation; impaired mobility and gait Onset Date 05/06/22 M3 PT-IP Subjective Start: 05/09/22 13:36 Freq: NEEDED Status: Active Protocol: Document 05/10/22 11:20 KS (Rec: 05/10/22 12:00 KS [id number]) Subjective Physical Therapy Visit Type Type Treatment Note Visit Start Time 11:20 Visit Stop Time 11:39 Total Visit Minutes 19 Notes Pts present Number of RN CAMP Visits 1 Physical Therapy Visit Comments Patient Goals Return home with family support M4 PT-IP Mobility and Gait Start: 05/09/22 13:36 Freq: NEEDED Status: Active Protocol: Document 05/10/22 11:20 KS (Rec: 05/10/22 12:00 KS [id number]) PT-Bed Mobility Assessment Supine to Sit Supine to Sit Standby Assistance Scooting Scooting to Edge of Bed Standby Assistance PT-Transfer Assessment Sit to and From Stand Sit to and from Stand Contact Guard Assistance,Use of Upper Extremities Equipment Transfer Assistive Device None,Gait Belt Orthotic/Prosthetic Devices or Brace: No Transfers Transfer Destination Chair Transfer Technique Stand Step Pivot Transfer Ability Level of Assist Contact Guard Assistance,Use of Upper Extremities Comments Mobility Comments Pt in bed upon arrival, agreeable to transfer to chair for lunch but does not want to mobilize further due to SOB . Pt 89% on 2L at rest. SBA for bed mobility, CGA for sit< >stand and stand step pivot from bed to chair w/o AD. After transfer, pt reported SOB and O2 85% on 2L. Increased to 2.5 L and pts O2 increased to 88-90% after ~3 min. Decreased back to 2L and O2 stable at 88%. Instructed pt in ankle pumps, quad sets, and glute sets to promote blood flow and prevent muscle wasting. Pt left in chair w/ in room and all needs in reach. Gait Assessment Gait Gait Assistance Required: Contact Guard Assist Distance (Feet) 5 Assistive Devices Assistive Device None,Gait Belt Orthotic/Prosthetic Devices or Brace: No Gait Deviations General Gait Pattern Decreased Stride Length, Decreased Feet Clearance, Flexed Trunk,Wide Based Gait Factors Limiting Gait Function Factors Limiting Gait Function Decreased Strength,Respiratory Distress Comments Gait Comments Pt not agreeable to further ambulation due to SOB. Stair Climbing Assessment Comments Stair Climbing Comments Not assessed. PT-Balance Assessment Sitting Balance and Reactions Static Sitting Balance Ability Normal Dynamic Sitting Balance Ability Normal Standing Balance and Reactions Static Standing Balance Ability Fair Dynamic Standing Balance Ability Fair Device Used no AD M5 PT-IP Objective Assessments Start: 05/09/22 13:36 Freq: NEEDED Status: Active Protocol: Document 05/09/22 14:15 AW (Rec: 05/09/22 15:02 AW [id number]) Orientation Orientation/Cognition Level of Alertness Alert Orientation Name,Day of Week,Place, Situation Language Function Ability No Deficits Noted Safety Awareness Understands Safety Issues Comments Communication limited by SOB. Gross Range of Motion Lower Extremity ROM Assessment Within Functional Limits Strength Lower Extremity Strength Assessment Bilaterally Impaired Hip 4/5 Knee 4/5 Ankle 4+/5 DF; 4-/5 PF Sensation Assessment Sensation Gross Sensation WNL M6 PT-IP Treatment Start: 05/09/22 13:36 Freq: NEEDED Status: Active Protocol: Document 05/10/22 11:20 KS (Rec: 05/10/22 12:00 KS [id number]) Physical Therapy Treatment Exercises Exercises Ankle Pumps,Gluteal Sets,Quad Sets Education Education Provided Safety Other Treatments Other Treatment Performed Educated pt on recommendation to use FWW for steadiness and energy conservation. Pt agreeable, states he will acquire but also comments that his home is not really set up for a FWW and he has canes and walking sticks as well. M7 PT-IP Assessment and Plan Start: 05/09/22 13:36 Freq: NEEDED Status: Active Protocol: Document 05/10/22 11:20 KS (Rec: 05/10/22 12:00 KS [id number]) PT Summary Assessment and Plan Potential Rehabilitation Potential Good Summary Impairments Strength,Balance,Bed Mobility, Transfers,Gait,Activity Tolerance Progress Towards Goals Slow Progress due to Medical Issues,Slow Progress due to Activity Tolerance Assessment Summary Pt remains limited by low O2, respiratory distress, and low tolerance for activity. He requires SBA to CGA for mobility, but can only perform in small bouts before becoming SOB. He was on 2L today and O2 desat to 85% following transfer and took ~3 min on 2.5L to recover. Pt will need to improve tolerance for functional gait distances for safe return home which is his preference. PT recommending use of FWW at this time for energy conservation, however pt is not sure he can fit one in his home. Pt would benefit from PT to progress strength and mobility independence at discharge. Goals Bed Mobility Goal Independent Transfer Goal Independent,Front Wheeled Walker Gait Goal Independent,Front Wheel Walker Gait Distance 150 Other Goals - up/down 2 steps with L rail SBA - improve transfers and gait to SBA without AD Days to Meet Goals 8 Frequency of Treatment Frequency Of Treatment Once a Day Treatment Plan Physical Therapy Treatment Plan Bed Mobility Training,Transfer Training,Gait Training, Therapeutic Exercise,Balance Retraining,Discharge Planning, Hot or Cold Pack,Neuromuscular Re-ed Other Recommendations and Next Treatment Improve tolerance for Focus ambulation as tolerated. Precautions Other Precautions O2 sat Recommendations To Nursing Amount of Assist Needed 1 Person Assist Discharge Recommendations PT Discharge Recommendations Home with Assistance,Home Health Equipment Needed for Home Before FWW if unsafe without Discharge Transportation Needs at Discharge Private Vehicle
[2022-05-10] MEDS: cefTRIAXone 1,000 MG in SODIUM CHLORIDE 0.9% 100 ML 200 MG IV (16:12)
[2022-05-11] VITALS (9 sets, daily range): BP systolic 121–134; BP diastolic 69–88; PULSE 70–126; RESP 16–24; TEMP 36.2–36.6; O2SAT 91–94
[2022-05-11] MEDS: BUDESONIDE 0.5 MG/2 ML NEB INH ×2 (07:50→18:44)
[2022-05-11] MEDS: ALBUTEROL/IPRATROPIUM 3 ML AMPUL INH ×3 (07:50→18:44)
[2022-05-11] MEDS: APIXABAN 5 MG TABLET PO ×2 (09:20→20:02)
[2022-05-11] MEDS: TORSEMIDE 10 MG TABLET 40 MG PO (09:20)
[2022-05-11] MEDS: carvediloL 3.125 MG TABLET 12.5 MG PO ×2 (09:20→20:02)
[2022-05-11] MEDS: predniSONE 20 MG TABLET 40 MG PO (09:20)
[2022-05-11] MEDS: SODIUM CHLORIDE 0.9% FLUSH 10 ML IV ×2 (09:21→20:02)
--- NOTE | 2022-05-11 10:43 | PT-IP ANOTE ---
Pt refused PT this AM due to fatigue, offering he did not sleep last night. Has been to chair and bathroom this AM. Will check back later.
--- NOTE | 2022-05-11 13:57 | P.PN_ITS ---
Subjective Subjective Date Patient Seen: 05/11/22 Time Patient Seen: 08:00 Interval history: He is now coughing up more green mucus, he feels he is moving air better. He is less short of breath, but still when ambulating becomes quite dyspneic Exam Vital Signs (past 8 hours): - 05/11/22 07:53 05/11/22 07:51 05/11/22 11:13 Temperature 97.5 F L 97.8 F Pulse Rate 89 105 H Respiratory Rate 16 24 Blood Pressure 134/88 122/69 Pulse Oximetry 92 91 Oxygen Delivery Method Nasal Cannula Oxygen Flow Rate 2 2 1.5 Fraction of Inspired Oxygen 92 05/11/22 09:20 Temperature Pulse Rate Respiratory Rate Blood Pressure Pulse Oximetry Oxygen Delivery Method Nasal Cannula Oxygen Flow Rate Fraction of Inspired Oxygen Fraction of Inspired Oxygen 92 SaO2/FiO2 Ratio 258 Oxygen Delivery Method Nasal Cannula Oxygen Flow Rate 1.5 Narrative Exam Narrative: General:?appears to have more energy Lungs: breath sounds with improving air movement, no wheezing Cardio:?irregular and tachycardic Extremities: No edema or joint effusions. No cyanosis or clubbing. Objective Labs Result Diagrams: 05/10/22 06:21 05/10/22 06:21 [facility] Medical History CHF (congestive heart failure) Chronic atrial fibrillation (07/13/15) Chronic obstructive pulmonary disease (07/13/15) Essential hypertension (07/13/15) Surgical History S/P hernia surgery S/P TURP Family History Mother No pertinent past medical history Father No pertinent past medical history Social History household members: spouse Smoking Status: Former smoker alcohol intake: never Assessment & Plan Assessment & Plan narrative: This is an 81 year old male with PMH of chronic atrial fibrillation, COPD, CHF (unknown EF) who presents with shortness of breath admitted for further management of presumed bacterial pneumonia and COPD exacerbation. 1. Acute respiratory failure with hypoxia, present on admission - likely secondary to acute infection with COPD exacerbation as discussed below. - continue to wean from O2, goal O2 should be 88-92% while on supplemental oxygen given COPD history. - given prolonged course of improvement suspect will need oxygen on discharge 2. Sepsis secondary to bilateral Bacterial community acquired pneumonia , acute, present on admission with acute respiratory failure with hypoxia, elevated troponin, and Hyperbilirubinemia. - PSI class IV risk, high risk of morbidity and mortality. - continue ceftriaxone and azithromycin - patient did meet SIRS criteria, SOFA score of 2 on admission. 3. COPD with exacerbation - prednisone 40 mg daily - RT eval and treat. Continue formulary nebulizer equivalents to his home medications during admission along with albuterol prn. 4.Acute CHF exacerbation ruled out - TTE with normal EF of 60-65%. - continue home torsemide to keep euvolemic 5. chronic atrial fibrillation with RVR - resumed beta-saji with better rate control COVID-19 COVID-19 status: Negative Result date/Date tested (Pos, Neg/Pending): 05/06/22 Time Spent With Patient Critical Care time: I spent a total of [] minutes of critical care time on this patient's care today; this time is exclusive of procedural time. Quality VTE Deep Vein Thrombosis/Pulmonary Embolism Present on Admission: No
--- NOTE | 2022-05-11 15:12 | PT-IP ANOTE ---
Checked on pt, MARKETING SERVICES VICE PRESIDENT in room and confirms pt just ambulated to bathroom. Pt just got back into bed and is SOB an requesting to rest. Left w/ MARKETING SERVICES VICE PRESIDENT attending. Will check back in AM.
[2022-05-12] VITALS (10 sets, daily range): BP systolic 113–133; BP diastolic 60–87; PULSE 76–100; RESP 16–20; TEMP 36.1–36.4; O2SAT 91–96
[2022-05-12 05:07] LABS: BUN Creatinine Ratio 45.9 (6-22); Blood Urea Nitrogen 50 mg/dL (9-20); Calcium 8.2 mg/dL (8.4-10.2); Chloride 91 mmol/L (98-107); Estimated Glomerular Filt Rate > 60 mL/min (>60); Glucose 148 mg/dL (80-110); HEMOLYSIS < 15 (0-50); Potassium 3.8 mmol/L (3.4-5.1); Sodium 138 mmol/L (137-145)
[2022-05-12 05:17] LABS: Carbon Dioxide 40 mmol/L (22-32)
--- NOTE | 2022-05-12 08:43 | P.DS_ITS ---
History of Present Illness History of Present Illness Chief complaint: sob Discharge Providers Provider Date of admission: 05/06/22 14:21 Discharge Date: 05/12/22 Primary care physician: NETTA Chandler Consults: 05/09/22 10:16 Consult to Physical Therapy Evaluate & Treat Comment: Physician Instructions: Evaluate and Treat 05/11/22 11:49 Consult to Home Health Routine Comment: Reason For Exam: Evaluate and Treat- RN,PT,OT Discharge provider: Will Atkins DO Summary Hospital Course Discharge Diagnosis: 1. Acute respiratory failure with hypoxia, present on admission ?- likely secondary to acute infection with COPD exacerbation as discussed below. ?- continue to wean from O2, goal O2 should be 88-92% while on supplemental oxygen given COPD history. - given prolonged course of improvement suspect will need oxygen on discharge 2. Sepsis secondary to bilateral Bacterial community acquired pneumonia , acute, present on admission with acute respiratory failure with hypoxia, elevated troponin, and Hyperbilirubinemia. ?- PSI class IV risk, high risk of morbidity and mortality. ?- continue ceftriaxone and azithromycin ?- patient did meet SIRS criteria, SOFA score of 2 on admission. 3. COPD with exacerbation ?- prednisone 40 mg daily ?- RT eval and treat. Continue formulary nebulizer equivalents to his home medications during admission along with albuterol prn. 4.Acute CHF exacerbation ruled out ?- TTE with normal EF of 60-65%. ?- continue home torsemide to keep euvolemic 5. chronic atrial fibrillation with RVR ?- resumed beta-saji with better rate control Hospital Course: This is an 81 year old male with PMH of chronic atrial fibrillation, COPD, CHF (unknown EF) who presents with shortness of breath due to presumed bacterial pneumonia and COPD exacerbation. Time Spent with Patient Time spent: Greater than 30 minutes Exam Vital Signs (past 8 hours): - 05/12/22 03:16 05/12/22 05:17 05/12/22 05:21 Temperature 97.1 F L Pulse Rate 76 Respiratory Rate 19 20 20 Blood Pressure 129/77 Pulse Oximetry 96 94 93 Oxygen Flow Rate 2 2 1 05/12/22 07:20 Temperature 97.1 F L Pulse Rate 85 Respiratory Rate 16 Blood Pressure 133/85 Pulse Oximetry 92 Oxygen Flow Rate 1 Fraction of Inspired Oxygen 92 SaO2/FiO2 Ratio 258 Oxygen Delivery Method Nasal Cannula Oxygen Flow Rate 1 Narrative Exam Narrative: General:?appears to have more energy Lungs: breath sounds with improving air movement, no wheezing Cardio:?irregular and tachycardic Extremities: No edema or joint effusions. No cyanosis or clubbing. Objective Labs Result Diagrams: 05/10/22 06:21 05/12/22 04:26 Labs: Laboratory Results - last 24 hr 05/12/22 04:26 Sodium 138 Potassium 3.8 Chloride 91 L Carbon Dioxide 40 H* BUN 50 H Creatinine 1.09 Estimated GFR > 60 BUN/Creatinine Ratio 45.9 H Glucose 148 H Calcium 8.2 L PFSH Medical History CHF (congestive heart failure) Chronic atrial fibrillation (07/13/15) Chronic obstructive pulmonary disease (07/13/15) Essential hypertension (07/13/15) Surgical History S/P hernia surgery S/P TURP Family History Mother No pertinent past medical history Father No pertinent past medical history Social History household members: spouse Smoking Status: Former smoker alcohol intake: never Discharge Plan Discharge orders & Medications Prescriptions: No Action carvedilol [Coreg] 6.25 MG tablet 6.25 mg PO BID Qty: 180 1RF torsemide 20 mg tablet 40 mg PO DAILY Label Comments: TAKE TWO(2) TABLETS BY MOUTH ONCE DAILY DOSE CHANGE 10/14/21 potassium chloride 10 mEq tablet extended release 20 meq PO DAILY PRN (Reason: low potassium) Label Comments: TAKE TWO(2) TABLETS BY MOUTH ONCE DAILY NEEDED WHEN TAKING TORSEMIDE albuterol sulfate [Ventolin HFA] 90 mcg/actuation HFA aerosol inhaler 2 puff INHALATION Q6H PRN (Reason: Shortness Of Breath) Label Comments: INHALE TWO(2) PUFFS BY MOUTH EVERY SIX(6) HOURS NEEDED FOR SHORTNESS OF BREATH AN/OR WHEEZING. budesonide-formoterol [Symbicort] 160-4.5 mcg/actuation HFA aerosol inhaler 2 puff INHALATION Q12H Label Comments: INHALE TWO(2) PUFFS BY MOUTH EVERY TWELVE(12) HOURS Eliquis 5 mg tablet 5 mg PO BID losartan 50 mg Tablet 50 mg PO DAILY Follow up/Referrals: Mercy Solorzano ARNP [Primary Care Provider] - 2 Weeks Visit Report/Discharge Packet Instructions: Home Oxygen Therapy, DI for Heart Failure, DI for Chronic Obstruc tive Pulmonary Disease, DI for Pneumonia -- Adult, DI for Oxygen Therapy -- Adult, DI for Atrial Fibrillation, How to Measure Oxygen Saturation via Pulse Oximetry, How to Perform Oxygen Therapy via Cannula, How to Prevent Falls, Traveling When You Need Oxygen Therapy Discharge Data Primary Care Provider: Mercy Solorzano Quality VTE Deep Vein Thrombosis/Pulmonary Embolism Present on Admission: No
[2022-05-12] MEDS: ALBUTEROL 2.5 MG/3 ML NEB (ADULT) INH (08:55)
[2022-05-12] MEDS: BUDESONIDE 0.5 MG/2 ML NEB INH ×2 (08:55→18:47)
[2022-05-12] MEDS: APIXABAN 5 MG TABLET PO ×2 (10:05→20:17)
[2022-05-12] MEDS: predniSONE 20 MG TABLET 40 MG PO (10:06)
[2022-05-12] MEDS: TORSEMIDE 10 MG TABLET 40 MG PO (10:06)
[2022-05-12] MEDS: carvediloL 3.125 MG TABLET 12.5 MG PO ×2 (10:06→20:17)
--- NOTE | 2022-05-12 11:32 | PC.NURSE ---
Patient is up to the bathroom with one person assist, in room and has been assisting with patients needs and is helpful with care. He has wheezes when auscultating lungs. He was trialed on room air and did not do well with oxygen, he dropped down in the mid 80s. Patient will be going home on oxygen when he discharges. He is back to bed and tolerated all of his meds well, patient is using urinal at bedside.
--- NOTE | 2022-05-12 13:29 | PM.PN.1 ---
Subjective Subjective Date Patient Seen: 05/12/22 Time Patient Seen: 13:30 Interval history: Still very wheezy and SOB with movement. Coughing up less mucus today. Exam Vital Signs (past 8 hours): - 05/12/22 07:20 05/12/22 11:20 Temperature 97.1 F L 97.2 F L Pulse Rate 85 84 Respiratory Rate 16 16 Blood Pressure 133/85 113/78 Pulse Oximetry 92 91 Oxygen Flow Rate 1 1 Fraction of Inspired Oxygen 92 SaO2/FiO2 Ratio 258 Oxygen Delivery Method Nasal Cannula Oxygen Flow Rate 1 Narrative Exam Narrative: General:?fatigued but appears to have more energy Lungs: bilateral expiratory wheezes Cardio:?irregular, normal rate Extremities: No edema or joint effusions. No cyanosis or clubbing. ABD: soft, nontender, nondistended, no organomegaly EXT: warm and well perfused with no edema NEURO: awake, alert, oriented, no focal deficits Objective Labs Result Diagrams: 05/10/22 06:21 05/12/22 04:26 Labs: Laboratory Results - last 24 hr 05/12/22 04:26 Sodium 138 Potassium 3.8 Chloride 91 L Carbon Dioxide 40 H* BUN 50 H Creatinine 1.09 Estimated GFR > 60 BUN/Creatinine Ratio 45.9 H Glucose 148 H Calcium 8.2 L PFSH Medical History CHF (congestive heart failure) Chronic atrial fibrillation (07/13/15) Chronic obstructive pulmonary disease (07/13/15) Essential hypertension (07/13/15) Surgical History S/P hernia surgery S/P TURP Family History Mother No pertinent past medical history Father No pertinent past medical history Social History household members: spouse Smoking Status: Former smoker alcohol intake: never Assessment & Plan Assessment & Plan narrative: This is an 81 year old male with PMH of chronic atrial fibrillation, COPD, CHF (unknown EF) who presents with shortness of breath admitted for further management of presumed bacterial pneumonia and COPD exacerbation. 1. Acute respiratory failure with hypoxia, present on admission - likely secondary to acute infection with COPD exacerbation as discussed below. - continue to wean from O2, goal O2 should be 88-92% while on supplemental oxygen given COPD history. - given prolonged course of improvement suspect will need oxygen on discharge - requiring 2L per home O2 eval 2. Sepsis secondary to bilateral Bacterial community acquired pneumonia , acute, present on admission with sepsis component resolved - PSI class IV risk, high risk of morbidity and mortality. - finished courses of ceftriaxone and azithromycin - patient did meet SIRS criteria, SOFA score of 2 on admission. 3. COPD with exacerbation - give dose of solu medrol 125mg IV due to persistent wheezes and hypoxia - prednisone 40 mg daily - RT eval and treat. Continue formulary nebulizer equivalents to his home medications during admission along with albuterol prn. 4.Acute CHF exacerbation ruled out - TTE with normal EF of 60-65%. - continue home torsemide to keep euvolemic - resume home losartan at 25mg daily down from 50mg due to normal BP 5. chronic atrial fibrillation with RVR - resumed beta-saji with better rate control - continue eliquis Dispo: Home in 1-2 days likely with . COVID-19 COVID-19 status: Negative Result date/Date tested (Pos, Neg/Pending): 05/06/22 Time Spent With Patient Critical Care time: I spent a total of [] minutes of critical care time on this patient's care today; this time is exclusive of procedural time. Quality VTE Deep Vein Thrombosis/Pulmonary Embolism Present on Admission: No
[2022-05-12] MEDS: methylPREDNISolone 125 MG/2 ML VIAL IV (13:39)
[2022-05-12] MEDS: LOSARTAN 25 MG TABLET PO (14:05)
[2022-05-12] MEDS: BENZOCAINE/MENTHOL 1 LOZ PKT 1 EACH PO (14:06)
--- NOTE | 2022-05-12 15:33 | PT-IP ANOTE ---
Attempted to see pt this PM, pt refused PT stating he has no further needs and refused stair training. Has been mobilizing in room SBA with and nursing staff, still becomes SOB. Feels physically safe and capable to manage at home on home O2 w/ his but may still be interested in home health. Offered PT services for tomorrow morning, but pt declined and confirmed he would like to me discharged from PT at this time. PT, RN, and CM aware.
--- NOTE | 2022-05-12 15:56 | CM.DPC ---
DCP Cont: Per MD, pt's sats dropped when standing so not yet stable for d/c but anticipate d/c to home tomorrow Fri if stable. Per RT, completed assessment for home oxygen and had MD sign document needed and have home oxygen set up for discharge. Per CUBE MACHINE TENDER, pt declined PT today and ambulating well but declined stair training as pt has 2 steps to enter but ambulating well and therefore discharged pt from Inpt services. SW attempted to meet bedside with pt and spouse to inquire about HH although unclear if pt would meet criteria for HH but F2F and orders previously completed in case HH needed. Spouse on the phone regarding insurance and meds and requested SW return later and due to triage needs and staffing issues, SW to follow up tomorrow since pt will not d/c home today. GERMAN Martini
--- NOTE | 2022-05-12 16:00 | PT.IPTN ---
Current Diagnoses Pneumonia, unspecified organism (05/06/22) Physical Therapy Treatment Note M2 PT-IP Current Condition Start: 05/09/22 13:36 Freq: NEEDED Status: Active Protocol: Document 05/09/22 14:15 AW (Rec: 05/09/22 15:02 AW [id number]) Physical Therapy Current Condition Current Condition Evaluation Date 05/09/22 Treatment Diagnosis COPD exacerbation; impaired mobility and gait Onset Date 05/06/22 M3 PT-IP Subjective Start: 05/09/22 13:36 Freq: NEEDED Status: Active Protocol: Document 05/12/22 15:59 AB (Rec: 05/12/22 16:00 AB [id number]) Subjective Physical Therapy Visit Type Type Administrative Note Notes GENERAL TECHNICIAN informed PT that pt requested d/c from PT. pt mobilizing with spouse in room and refusing to do stair training and plans to go home with spouse's assistance. nurse and lining caser aware. M M7 PT-IP Assessment and Plan Start: 05/09/22 13:36 Freq: NEEDED Status: Active Protocol: Document 05/12/22 15:59 AB (Rec: 05/12/22 16:00 AB [id number]) PT Summary Assessment and Plan Frequency of Treatment Frequency Of Treatment Discharge
[2022-05-12] MEDS: SODIUM CHLORIDE 0.9% FLUSH 10 ML IV (20:17)
[2022-05-12] MEDS: MELATONIN 3 MG TABLET 6 MG PO (20:20)
[2022-05-13] VITALS (10 sets, daily range): BP systolic 107–128; BP diastolic 67–89; PULSE 76–94; RESP 16–24; TEMP 36.1–36.6; O2SAT 90–95
[2022-05-13] MEDS: BUDESONIDE 0.5 MG/2 ML NEB INH ×2 (07:54→22:20)
[2022-05-13] MEDS: APIXABAN 5 MG TABLET PO ×2 (09:18→20:14)
[2022-05-13] MEDS: carvediloL 3.125 MG TABLET 12.5 MG PO ×2 (09:18→20:14)
[2022-05-13] MEDS: predniSONE 20 MG TABLET 40 MG PO (09:19)
[2022-05-13] MEDS: LOSARTAN 25 MG TABLET PO (09:19)
[2022-05-13] MEDS: SODIUM CHLORIDE 0.9% FLUSH 10 ML IV ×2 (09:19→20:14)
[2022-05-13] MEDS: TORSEMIDE 10 MG TABLET 40 MG PO (09:19)
--- NOTE | 2022-05-13 12:29 | DI.RAD.S_ITS ---
PROCEDURE: XR CHEST 1V INDICATIONS: persistent dyspnea and hypoxia TECHNIQUE: One view of the chest was acquired. COMPARISON: [facility], CR, XR CHEST 2 VIEWS, 04/25/2019, 12:18. [facility], CT, CT ANGIO CHEST, 05/07/2019, 12:06. [facility], CR, XR CHEST 2V, 05/06/2022, 12:14. [facility], CR, CHEST 2 VIEW, 07/04/2013, 15:47. FINDINGS: Surgical changes and devices: None. Lungs and pleura: Lungs are mildly abnormal, with reduced inspiratory volume accentuating a mild interstitial prominence that may reflect prior smoking history. There is focal radiodensity at the medial right lower lung abutting the right cardiac border, below the level of the dominant right hilar vessels. This unexpected focal radiodensity measures up to 3.4 cm craniocaudad and 1.9 cm transverse.. No pleural effusions or pneumothorax. Mediastinum: Mediastinal contours appear normal except for interval increase in rightward bowing of the mid and distal trachea. Heart size is normal. Bones and chest wall: No suspicious bony lesions. Overlying soft tissues appear unremarkable. IMPRESSION: Chronic mild interstitial lung disease, perhaps related to prior smoking history. Possible medial right lower lobe lung mass abutting the right cardiac border measuring up to 1.9 x 3.4 cm. Increased abnormal rightward bowing of the mid and inferior trachea, possibly related to mediastinal mass. CT scanning likely is warranted to evaluate for possible malignancy as cause of that appearance. Dictated by: Carlos Pena M.D. on 05/13/2022 at 13:09 Approved by: Carlos Pena M.D. on 05/13/2022 at 13:13
[2022-05-13 13:20] LABS: D Dimer 575 ng/ml (<500)
--- NOTE | 2022-05-13 14:05 | DI.CT.S_ITS ---
PROCEDURE: CT CHEST W CON INDICATIONS: possible mediastinal mass TECHNIQUE: After the administration of intravenous contrast, 5 mm thick sections acquired from the pulmonary apices to the posterior costophrenic angles. 1 mm axial lung, 5 mm thick coronal and sagittal reformats and 7 mm axial MIP were acquired. For radiation dose reduction, the following was used: automated exposure control, adjustment of mA and/or kV according to patient size. COMPARISON: [facility], CT, CT ANGIO CHEST, 05/07/2019, 12:06. FINDINGS: Image quality: Excellent Lungs and pleura: Emphysema. No pleural effusions. Scattered scarring and atelectasis. There are thick areas of possible scar or atelectasis at the bases. Differential also includes mass lesions. On the right this is best seen on image 5/46 measuring a max thickness of 1.3 centimeters. This corresponds to the radiographic finding. At the left base, this is best seen on image 5/49 measuring 2.5 x 2.8 centimeters. There are also ground-glass opacities and nodularity at the posterior portion of the right upper lobe. Mediastinum, heart, and esophagus: No hiatal hernia. There is cardiomegaly and biatrial enlargement. 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 This accounts for the right tracheal displacement seen on radiography. Otherwise, no pathologic adenopathy is identified. Chest wall and thyroid: Left pectoralis minor lipoma. No axillary adenopathy. Thyroid findings as above. There is a suspected sebaceous cyst in the right upper back. Upper abdomen: Partially seen, no significant abnormality. Bones: Scattered degenerative changes. No acute or suspicious osseous abnormality. IMPRESSION: Pulmonary findings described above in the lung bases could represent thick areas of scar/atelectasis, versus underlying masses. There is also suspected infectious or inflammatory nodularity and ground-glass opacities, most obvious in the posterior inferior right upper lobe. Short interval follow-up imaging is recommended, in at most 3 months depending on clinical context. Enlarged goitrous thyroid extending into the mediastinum displacing the trachea to the right as before, increased in size compared to 2019. Superimposed malignancy is also possible. Dictated by: Brant Tiwari M.D. on 05/13/2022 at 15:30 Approved by: Brant Tiwari M.D. on 05/13/2022 at 15:38
--- NOTE | 2022-05-13 16:32 | CM.DPC ---
DCP continued: Patient Home O2 evaluation done on 05/12/22 may need to be redone tomorrow 05/14/22 since it will have been greater then 48hours and this is required for insurance. Patient is not planned to DC today since he has been having difficulty with Wheezing and Shortness of breath. Cm team will follow up with RT in the AM to determine if a new home o2 eval will be needed prior to DC home. CM team will also follow up with [place] upon DC for home O2 . CM team will continue to follow and work with RT to get home O2 ready for when patient DC home. Riddhi Espinosa RNrfid specialist
--- NOTE | 2022-05-13 16:54 | P.PN_ITS ---
Subjective Subjective Date Patient Seen: 05/13/22 Time Patient Seen: 16:54 Interval history: Patient's breathing somewhat improved today. at bedside. Still on 2L O2. Exam Vital Signs (past 8 hours): - 05/13/22 11:41 Temperature 97.2 F L Pulse Rate 89 Respiratory Rate 22 Blood Pressure 127/67 Pulse Oximetry 95 Oxygen Flow Rate 3 Fraction of Inspired Oxygen 92 SaO2/FiO2 Ratio 258 Oxygen Delivery Method Nasal Cannula Oxygen Flow Rate 3 Narrative Exam Narrative: General:?appears less ill today, conversational dyspnea still somewhat present with raspy voice Lungs: bilateral expiratory wheezes Cardio:?irregular, normal rate Extremities: No edema or joint effusions. No cyanosis or clubbing. ABD: soft, nontender, nondistended, no organomegaly EXT: warm and well perfused with no edema NEURO: awake, alert, oriented, no focal deficits Objective Labs Result Diagrams: 05/10/22 06:21 05/12/22 04:26 Labs: Laboratory Results - last 24 hr 05/13/22 12:56 D-Dimer [address] [facility] Medical History CHF (congestive heart failure) Chronic atrial fibrillation (07/13/15) Chronic obstructive pulmonary disease (07/13/15) Essential hypertension (07/13/15) Surgical History S/P hernia surgery S/P TURP Family History Mother No pertinent past medical history Father No pertinent past medical history Social History household members: spouse Smoking Status: Former smoker alcohol intake: never Assessment & Plan Assessment & Plan narrative: This is an 81 year old male with PMH of chronic atrial fibrillation, COPD, CHF (unknown EF) who presents with shortness of breath admitted for further management of presumed bacterial pneumonia and COPD exacerbation. 1. Acute respiratory failure with hypoxia, present on admission, improving - likely secondary to acute infection with COPD exacerbation as discussed below. - CT chest showed large goiter which I don't believe is contributing, however thick scarring/atelectasis at lung bases - requiring 2L per home O2 eval, will need repeat home O2 eval on 05/14 as last has - continue nebs and steroids, finished abx 2. Sepsis secondary to bilateral Bacterial community acquired pneumonia , acute, present on admission with sepsis component resolved - PSI class IV risk, high risk of morbidity and mortality. - finished courses of ceftriaxone and azithromycin - patient did meet SIRS criteria, SOFA score of 2 on admission. 3. COPD with exacerbation - given dose of solu medrol 125mg IV on 05/12 due to persistent wheezes and hypoxia - prednisone 40 mg daily x5 days - RT eval and treat. Continue formulary nebulizer equivalents to his home medications during admission along with albuterol prn. 4.Acute CHF exacerbation ruled out - TTE with normal EF of 60-65%. - continue home torsemide to keep euvolemic - resume home losartan at 25mg daily down from 50mg due to normal BP 5. chronic atrial fibrillation with RVR - resumed beta-saji with better rate control - continue eliquis 6. 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 COVID-19 COVID-19 status: Negative Result date/Date tested (Pos, Neg/Pending): 05/06/22 Time Spent With Patient Critical Care time: I spent a total of [] minutes of critical care time on this patient's care today; this time is exclusive of procedural time. Quality VTE Deep Vein Thrombosis/Pulmonary Embolism Present on Admission: No
[2022-05-13] MEDS: ALBUTEROL/IPRATROPIUM 3 ML AMPUL INH (19:47)
--- NOTE | 2022-05-14 04:40 | PC.NURSE ---
Pt is AxOx4, needs STA and cooperative. VSS, pt denies pain. Pt refused to be turned at night. Lungs diminished in all area and slightly crackles on LLL posterior. Pt is on 2L O2 with NC. Pt slept well at night. No other changes. Continue monitor.
[2022-05-14 05:43] VITALS: BP 118/67; PULSE 86; RESP 18; TEMP 36.2; O2SAT 92
--- NOTE | 2022-05-14 08:38 | P.DS_ITS ---
History of Present Illness History of Present Illness Date Patient Seen: 05/14/22 Time Patient Seen: 08:15 Chief complaint: sob Narrative: This is an 81 year old male with PMH of chronic atrial fibrillation, COPD, CHF (unknown EF) who presents with shortness of breath, productive cough, sore throat and diarrhea for the past 3 days. Symptoms have gradually increased over the past 3 days, and last night he had a very difficult time breathing so he decided to come to the hospital today. His cough is productive of brownish yellow sputum, and he does feel somewhat wheezy. He denies any chest pain or palpitations. He denies any abdominal pain or dysuria. He has not had any recent travel or sick contacts. He has not had any lower extremity swelling. He has had difficulty swallowing and eating over the past few days with his sore throat but denies any coughing after meals. He has not taken his home furosemide the last two days because he has felt too weak to get up to use the restroom. In the emergency room, he was in afib with RVR in the low 120s. BP was on the soft side and per EMS his oxygen was in the low 80s on room air, responsive to 2L O2 here. CXR showed bilateral consolidations, R > L. Laboratory evaluation showed mild leukocytosis with WBC 13.4, Elevated T bili at 1.7 with normal AST/ALT, troponin 0.073, proBNP 2840, and procalcitonin of 2.11. COVID,FLU,and RSV were negative. He was given sepsis antibiotics with cefitraxone and azithrom ycin, fluid bolus was given (not full sepsis bolus was given over concern for possible acute heart failure). He was admitted for further management of presumed bacterial pneumonia and COPD exacerbation. Discharge Providers Provider Date of admission: 05/06/22 14:21 Discharge Date: 05/14/22 Primary care physician: NETTA Chandler Consults: 05/09/22 10:16 Consult to Physical Therapy Evaluate & Treat Comment: Physician Instructions: Evaluate and Treat 05/11/22 11:49 Consult to Home Health Routine Comment: Reason For Exam: Evaluate and Treat- RN,PT,OT Discharge provider: Elvis Gonzalez DO Summary Hospital Course Discharge Diagnosis: Please see hospital course by problem list noted below. Hospital Course: This is an 81 year old male with PMH of chronic atrial fibrillation, COPD, CHF (unknown EF) who presents with shortness of breath admitted for further management of presumed bacterial pneumonia and COPD exacerbation. 1. Acute respiratory failure with hypoxia, present on admission, improving ?- likely secondary to acute infection with COPD exacerbation as discussed below. ?- CT chest showed large goiter which may be contributing to wheezing but not likely respiratory failure. ?- requiring 2L per home O2 eval, will discharge home with home oxygen for now. PCP follow up recommended. ?- he completed course of steroids and antibiotics. 2. Sepsis secondary to bilateral Bacterial community acquired pneumonia , acute, present on admission with sepsis component resolved ?- PSI class IV risk, high risk of morbidity and mortality. ?- finished courses of ceftriaxone and azithromycin during his admission. ?- patient did meet SIRS criteria, SOFA score of 2 on admission. 3. COPD with exacerbation - He had COPD exacerbation during his hospital stay. He was given solu-medrol 125mg IV on 05/12 due to persistent wheezes and hypoxia. - prednisone 40 mg daily x5 days was continued, no need for further steroids on discharge given improvement. - RT eval and treat. Continue formulary nebulizer equivalents to his home medications during admission along with albuterol prn. 4.Acute CHF exacerbation ruled out, chronic diastolic heart failure ?- TTE with normal EF of 60-65%. He was initially thought to have possible acute heart failure component but this was deemed unlikely. ?- continued home torsemide to keep euvolemic ?- resume home losartan at 25mg daily down from 50mg due to normal BP 5. chronic atrial fibrillation with RVR ?- resumed beta-saji with better rate control ?- continue eliquis 6. 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 Time Spent with Patient Time spent: Greater than 30 minutes Exam Vital Signs (past 8 hours): - 05/14/22 05:43 Temperature 97.2 F L Pulse Rate 86 Respiratory Rate 18 Blood Pressure 118/67 Pulse Oximetry 92 Oxygen Flow Rate 2 Fraction of Inspired Oxygen 92 SaO2/FiO2 Ratio 258 Oxygen Delivery Method Nasal Cannula Oxygen Flow Rate 2 Narrative Exam Narrative: General:?appears less ill today, conversational dyspnea improved but still somewhat present with raspy voice Lungs: CTA b/l no wheezes, rhonchi, rales. Cardio:?irregular, normal rate Extremities: No edema or joint effusions. No cyanosis or clubbing. ABD: soft, nontender, nondistended, no organomegaly EXT: warm and well perfused with no edema NEURO: awake, alert, oriented, no focal deficits Objective Labs Result Diagrams: 05/10/22 06:21 05/12/22 04:26 Labs: Laboratory Results - last 24 hr 05/13/22 12:56 D-Dimer [address] [facility] Medical History CHF (congestive heart failure) Chronic atrial fibrillation (07/13/15) Chronic obstructive pulmonary disease (07/13/15) Essential hypertension (07/13/15) Surgical History S/P hernia surgery S/P TURP Family History Mother No pertinent past medical history Father No pertinent past medical history Social History household members: spouse Smoking Status: Former smoker alcohol intake: never Discharge Plan Discharge Plan Patient Disposition: Home Provider Discharge Comment: You were admitted to the hospital with pneumonia and COPD exacerbation. You were also found to have a large goiter, please follow up with your PCP for further referral to an endocrine surgeon or other specialist. You are being discharged home with oxygen, please obtain a pulse oximeter to m onitor oxygen levels at home. Ideally your oxygen should be between 88-92% at home while on oxygen. Excess oxygen can cause issues with your body holding on to excess carbon dioxide and can cause confusion. Discharge orders & Medications Prescriptions: Continued carvedilol [Coreg] 6.25 MG tablet 6.25 mg PO BID Qty: 180 1RF torsemide 20 mg tablet 40 mg PO DAILY Label Comments: TAKE TWO(2) TABLETS BY MOUTH ONCE DAILY DOSE CHANGE 10/14/21 potassium chloride 10 mEq tablet extended release 20 meq PO DAILY PRN (Reason: low potassium) Label Comments: TAKE TWO(2) TABLETS BY MOUTH ONCE DAILY NEEDED WHEN TAKING TORSEMIDE albuterol sulfate [Ventolin HFA] 90 mcg/actuation HFA aerosol inhaler 2 puff INHALATION Q6H PRN (Reason: Shortness Of Breath) Label Comments: INHALE TWO(2) PUFFS BY MOUTH EVERY SIX(6) HOURS NEEDED FOR SHORTNESS OF BREATH AN/OR WHEEZING. budesonide-formoterol [Symbicort] 160-4.5 mcg/actuation HFA aerosol inhaler 2 puff INHALATION Q12H Label Comments: INHALE TWO(2) PUFFS BY MOUTH EVERY TWELVE(12) HOURS Eliquis 5 mg tablet 5 mg PO BID Changed losartan 50 mg Tablet 25 mg PO DAILY 90 Days Qty: 0 0RF Follow up/Referrals: Mercy Solorzano ARNP [Primary Care Provider] - 2 Weeks Diet/Activity/Treatments Diet: Diet as Tolerated Activity: As tolerated Oxygen: Oxygen to keep O2 between 88-92% Other treatments: Use Acapella and Incentive spirometer every 2 hours while awake. Reposition every one to two hours, even small changes will help protect your skin on and the area around your buttocks. Visit Report/Discharge Packet Instructions: How to Use an Incentive Spirometer, How to Prevent Pressure Ulcers, Home Oxygen Therapy, DI for Heart Failure, DI for Chronic Obstructive Pulmonary Disease, DI for Pneumonia -- Adult, DI for Oxygen Therapy -- Adult, DI for Atrial Fibrillation, How to Measure Oxygen Saturation via Pulse Oximetry, H ow to Perform Oxygen Therapy via Cannula, How to Prevent Falls, DI for Oropharyngeal Dysphagia, Traveling When You Need Oxygen Therapy, Substernal Goiter Discharge Data Primary Care Provider: Mercy Solorzano Quality VTE Deep Vein Thrombosis/Pulmonary Embolism Present on Admission: No
[2022-05-14 08:50] VITALS: BP 108/65; PULSE 77; RESP 18; TEMP 36.2; O2SAT 96
[2022-05-14 09:25] VITALS: PULSE 100; RESP 18; O2SAT 93
[2022-05-14] MEDS: BUDESONIDE 0.5 MG/2 ML NEB INH (09:25)
[2022-05-14] MEDS: carvediloL 12.5 MG TABLET PO (09:27)
[2022-05-14] MEDS: predniSONE 20 MG TABLET 40 MG PO (09:27)
[2022-05-14] MEDS: SODIUM CHLORIDE 0.9% FLUSH 10 ML IV (09:28)
[2022-05-14] MEDS: APIXABAN 5 MG TABLET PO (09:28)
[2022-05-14] MEDS: LOSARTAN 25 MG TABLET PO (09:28)
[2022-05-14] MEDS: TORSEMIDE 10 MG TABLET 40 MG PO (09:28)
--- NOTE | 2022-05-14 09:30 | CM.DPC ---
Addendum entered by Fide Peace R.N. 05/14/22 10:37: Santos from [facility] called back, confirmed that he does have referral. He is aware that patient is discharging home today. Original Note: DCP Cont: Patient does have discharge orders for home today, he may need to go home on home oxygen. Met with patient and spouse, Leonor, at bedside. Had spoken about the possibility of home health prior. Spouse and patient are opened to having home health. Brought in a [facility] brochure. Called Santos at [facility] and left a message, since referral had not yet been sent. Will fax over orders, face to face, DC Summary, to [facility]. If no response later today with Santos, will call the main number. P: Patient is to be discharging home with [facility], home oxygen is supposed to be set up. Will follow up again later with [facility]. Will fax over referral. Fide Peace RN/[employer]
--- NOTE | 2022-05-14 13:40 | PC.NURSE ---
Pending discharge: Oxygen tech here, he instructed pt and spouse about the home O2 set up. Portable tank set up. Spouse and pt feel comfortable with same. Reviewed extensive d/c instructions. Pt has had a-fib for a long time. Reviewed CHF teaching, weighing self daily and calling MD for weight increase. 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 Discussed fall prevention, pt is still a little weak and going home w/O2/tubing. He verb understanding. Reviewed pressure injuries. Pt has a spot on his buttocks. He tends to sit as it is the most comfortable position for him. Discussed off loading pressure freq. At home he has a special pillow/pressure relief donut shaped cushion he sits on which helps. Discussed skin care and importance of maintaing the skin he has. Pt verb understanding. Pt has a large goiter which was found on this admit. It has made swallowing difficult at times for him. Given orophar dysphagia sheet since it has tips for his diet and how to swallow easier. Reviewed medication, only med change is his losartan. Questions answered. Spouse given priority load pass. [place] for O2 therapy to arrive. [place] [address]
== END 2022-05-14 14:20 | disposition home or self-care (01) | DRG 871 ==
LOC: ED 14:21 → AC 14:21
PROVIDERS: Internal Medicine; Student in an Organized Health Care Education/Training Program; Admitting Provider Internal Medicine; Emergency Provider Emergency Medicine; PCP Nurse Practitioner Family; Referring Provider Emergency Medicine; Visit Provider Internal Medicine
DX: A41.9 Sepsis, unspecified organism (principal); J18.9 Pneumonia, unspecified organism; J96.01 Acute respiratory failure with hypoxia; I48.20 Chronic atrial fibrillation, unspecified; J44.1 Chronic obstructive pulmonary disease with (acute) exacerbation; I50.32 Chronic diastolic (congestive) heart failure; R65.20 Severe sepsis without septic shock; R13.10 Dysphagia, unspecified; E04.9 Nontoxic goiter, unspecified; I11.0 Hypertensive heart disease with heart failure; Z79.01 Long term (current) use of anticoagulants; Z87.891 Personal history of nicotine dependence; Z20.822 Contact with and (suspected) exposure to COVID-19
CPT/HCPCS: 0241U; 36415; 71045; 71046; 71260; 80048; 80053; 81001; 82550; 83605; 83735; 83880; 84145; 84484; 85025; 85027; 85379; 87040; 87070; 87086; 87205; 93005; 93306; 94618; 94640; 94667; 94760; 94762; 96365; 96367; 97162; 97530; 99285; J0696; J1940; J2930; J7613; Q9967